=== PATIENT | female | born 1940 | race Two or more races ===

== ENCOUNTER → 2023-11-16 14:43 | Outpatient (REF) | payer MEDICARE, SELFPAY ==
[2023-11-16 15:03] LABS: Urine Albumin Negative (Neg - Trace); Urine Bilirubin Negative (Negative); Urine Character Clear (Clear); Urine Color Yellow; Urine Glucose Negative (Negative); Urine Ketone 1+ (Negative); Urine Leukocyte 2+ (Negative); Urine Nitrite Negative (Negative); Urine Occult Blood Negative (Negative); Urine Specific Gravity 1.015 (<1.030); Urine Urobilinogen Negative (Neg - 1+)
[2023-11-16 15:30] LABS: Urine Squamous Cell 0-2 /LPF (Few)
[2023-11-16 15:32] LABS: Urine Bacteria Few (Negative); Urine Red Blood Cell 0-2 /HPF (0-2)
== END ==
LOC: OLABBH 14:43
PROVIDERS: ATTENDING PHYSICIAN Family Medicine
DX: N39.0 Urinary tract infection, site not specified (principal)
CPT/HCPCS: 81003; 81015; 87086

== ENCOUNTER 2024-03-25 00:15 | Inpatient (IN) | payer MEDICARE, SELFPAY ==
[2024-03-24 19:43] VITALS: BP 139/75
[2024-03-24 21:10] LABS: % Basophils 0.2 % (0-2); % Immature Granulocytes 1.9 % (0-0.5); % Lymphocytes 14.6 % (20.5-51.1); % Neutrophils 68.3 % (42.2-75.2); Absolute Immature Granulocytes 0.1 10^3/uL (0-0.05); Absolute Lymphocytes 0.7 10^3/uL (1.2-3.4); Absolute Monocytes 0.7 10^3/uL (0.1-0.6); Absolute Neutrophils 3.3 10^3/uL (1.4-6.5); Hemoglobin 9.8 g/dL (12.0-16.0); Mean Corp Hgb Conc. 30.6 g/dL (33.0-37.0); Mean Corpuscular Hgb 23.1 pg (27.0-31.0); Mean Corpuscular Volume 75.5 fL (81.0-99.0); Mean Platelet Volume 11.9 fL (7.4-10.4); Nucleated Red Blood Cells % 0 %; Platelet Count 204 10^3/uL (130-400); Red Blood Cell Count 4.24 10^6/uL (4.20-5.40); Red Cell Dist. Width 16.4 % (11.5-14.5); White Blood Cell Count 4.9 10^3/uL (4.8-10.8)
[2024-03-24 21:21] VITALS: BP 155/88
[2024-03-24 21:27] LABS: Urine Albumin Negative (Neg - Trace); Urine Bilirubin Negative (Negative); Urine Character Clear (Clear); Urine Color Straw; Urine Glucose Negative (Negative); Urine Ketone Negative (Negative); Urine Leukocyte Trace (Negative); Urine Nitrite Negative (Negative); Urine Occult Blood Negative (Negative); Urine Urobilinogen Negative (Neg - 1+)
[2024-03-24 21:32] LABS: Urine Squamous Cell 0-2 /LPF (Few)
[2024-03-24 21:33] LABS: Urine Bacteria Few (Negative); Urine Red Blood Cell 0-2 /HPF (0-2)
[2024-03-24 21:43] LABS: ALT (SGPT) 15 U/L (0-35); AST (SGOT) 23 U/L (14-36); Albumin 3.6 g/dl (3.5-5.0); Alkaline Phosphatase 83 U/L (38-126); Blood Urea Nitrogen 18 mg/dl (7-17); Calcium 8.8 mg/dl (8.4-10.2); Carbon Dioxide 27 mmol/L (22-30); Chloride 105 mmol/L (98-107); Glucose 112 mg/dl (70-99); Potassium 4.1 mmol/L (3.5-5.1); Sodium 141 mmol/L (135-145); Total Bilirubin 0.3 mg/dl (0.2-1.3); Total Protein 6.6 g/dl (6.3-8.2); eGFR 44.36
--- NOTE | 2024-03-24 22:00 | ED.GENMED ---
History of Present Illness
General
Chief Complaint: Fall
Source: patient
Exam Limitations: none
Time Seen by Provider: 03/24/24 19:58
Nursing documentation reviewed up to this point in time: agreed with
History of Present Illness
History of Present Illness:
83-year-old female past medical history of hypertension hyperlipidemia dementia sleep apnea presenting to the emergency department after multiple falls over the past few days coming from the memory care unit at [facility]. Complaining of
bilateral knee pain right-sided hand pain also is noted bruising to her face. Denies any shortness of breath chest pain nausea or vomiting. Not on blood thinners.
Review of Systems
Review of Systems
Allergies reviewed?: Yes
All Other Systems: ROS reviewed and negative except as documented in HPI and ROS
Phy Exam
Physical Exam
Physical Exam:
GENERAL: Alert , in no apparent distress
EYE: pupils equal and reactive
NECK: Supple, no significant adenopathy.
ENT: Bruising throughout the face mainly surrounding the orbital region and nasal bridge. No nasal septal hematoma o/p clr, mmm.
CARDIAC: Regular rate and rhythm .
LUNGS: Diminished lung sounds to the right side no acute respiratory distress, no wheezes/rales/rhonchi
ABDOMEN: Soft, without focal tenderness, no r/g, no cvat
NEUROLOGICAL: Alert and oriented, no focal neuro deficits
SKIN: Warm and dry, skin intact.
MUSCULOSKELETAL: Significant bruising and tenderness palpation to the right hand. Mainly to the second carpal, mild tenderness to the anterior knees bilaterally but good range of motion and strength. Otherwise normal range of motion strength of
both upper extremities. well perfused.
PSYCH: Normal and appropriate interaction.
Course
Orders/Labs/Results
Orders:
Orders
03/24/24 19:50
CT Head W/o Iv Contrast Urgent
Comment:
Reason For Exam: fall, head strike, facial bruising
03/24/24 19:51
Hand, Right 3 View [CR Hand - Right Min 3 Views] Urgent
Comment:
Reason For Exam: fall, right hand swelling/bruising
03/24/24 20:03
EKG [Electrocardiogram (*1)] Urgent
Reason for Study: Fatigue / Weakness
Knee, Left 4 or More Views [CR Knee - Left 4 Or More View*] Urgent
Comment:
Reason For Exam: fall knee pain
Knee, Right 4 or More Views [CR Knee- Right 4 Or More View*] Urgent
Comment:
Reason For Exam: fal lknee pain
03/24/24 20:04
EKG- Treatment ONCE
Chest [CR Chest - 2 Views ] Urgent
Comment:
Reason For Exam: sob
03/24/24 20:40
CT Chest With Iv Contrast Urgent
Comment:
Reason For Exam: left lung effusion
03/24/24 21:05
CBC/With Diff [Complete Blood Count/With Diff] Urgent
CMP [Comprehensive Metabolic Panel] Urgent
Urinalysis Reflex To Culture Urgent
Date Specimen was Collected: 03/24/24
Time Specimen was Collected: 20:04
Urine Microscopic Reflex Cult Urgent
Abnormal Lab Results
03/24/24
21:05
Hgb 9.8 L g/dL
(12.0-16.0)
Hct 32.0 L %
(37.0-47.0)
MCV 75.5 L fL
(81.0-99.0)
MCH 23.1 L pg
(27.0-31.0)
MCHC 30.6 L g/dL
(33.0-37.0)
RDW 16.4 H %
(11.5-14.5)
MPV 11.9 H fL
(7.4-10.4)
Abs Immat Gran (auto) 0.1 H 10^3/uL
(0-0.05)
Absolute Lymphs (auto) 0.7 L 10^3/uL
(1.2-3.4)
Absolute Monos (auto) 0.7 H 10^3/uL
(0.1-0.6)
Immature Gran % 1.9 H %
(0-0.5)
Lymphocytes % 14.6 L %
(20.5-51.1)
Monocytes % 15.0 H %
(1.7-9.3)
BUN 18 H mg/dl
(7-17)
Creatinine 1.2 H mg/dL
(0.6-1.0)
Glucose 112 H mg/dl
(70-99)
Leukocyte Esterase Rfl Trace A
(Negative)
Urine Bacteria (Reflex) Few A
(Negative)
03/24/24 21:05
03/24/24 21:05
Vital Signs
Initial and Last Documented VS:
Initial Vital Signs
Temp Pulse Resp BP Pulse Ox
98.3 F 86 16 139/75 90
03/24/24 19:43 03/24/24 19:43 03/24/24 19:43 03/24/24 19:43 03/24/24 19:43
Last Documented Vital Signs
Temp Pulse Resp BP Pulse Ox
98.3 F 76 14 150/97 96
03/24/24 19:43 03/24/24 22:45 03/24/24 22:45 03/24/24 22:05 03/24/24 22:45
MDM/Problems Addressed
MDM/Problems Addressed:
83-year-old female presenting to the problem today after multiple falls from her dementia unit at her nursing facility. Patient mainly concerned of right hand pain denies significant shortness of breath or headache. Is noted to have bruising to
her face head CT without emergent findings patient was found to be hypoxic but denies any shortness of breath or chest pain. Found to have diminished lung sounds to the left side. X-ray showing significant effusion to the left side CT scan then
ordered. Otherwise labs findings. CT scan showing large pleural effusion no broken ribs or signs of significant trauma to the chest. Otherwise labs unremarkable. Concern the patient hypoxemic plan to admit for IR drainage and further assessment
of patient's pleural effusion. Patient also was found of a fracture to her right hand to the second metacarpal. Patient was splinted. Stable throughout ER stay
*Critical Care Note
Total Time (30-74mins, 75-104mins- exclusive of procedures): Not Applicable
ED Attending Note
-
Portions of this chart may have been created with voice recognition software.� Occasional wrong word or��sound alike� substitutions may have occurred due to the inherent limitations of voice recognition software.
Discharge Plan
Departure
Patient Disposition: Admit
Date of Disposition: 03/24/24
Time of Disposition: 23:23
Admit to: Telemetry
Admit to doctor: Sena
Presentation/result/management discussed w/ accepting MD/DO: Hospitalist
Patient with high blood pressure during this ER visit?: No
Condition: Good
Covid-19: Not Applicable
Discharge Problem:
Pleural effusion on left, Hand fracture, right, Hypoxemia
Prescriptions:
No Action
fluticasone propion-salmeterol [Wixela Inhub] 250-50 mcg/dose Blister With Device
1 inh INHALATION BID
acetaminophen 325 mg Tablet
650 mg PO Q4H PRN (Reason: mild pain/fever)
trazodone 50 mg Tablet
50 mg PO HS
donepezil 10 mg Tablet
10 mg PO HS
lovastatin 40 mg Tablet
40 mg PO QPM
sertraline 100 mg Tablet
100 mg PO DAILY
fexofenadine 180 mg Tablet
180 mg PO DAILY
aspirin 81 mg Tablet,Delayed Release (Dr/Ec)
81 mg PO DAILY
triamcinolone acetonide 0.1 % Cream
1 applic TOPICAL BID
Rx Instructions:
Apply to affect area until healed
omeprazole 20 mg Capsule,Delayed Release(Dr/Ec)
20 mg PO DAILY
simethicone 125 mg Tablet,Chewable
250 mg PO BID
montelukast 10 mg Tablet
10 mg PO DAILY
albuterol sulfate 90 mcg/actuation Hfa Aerosol Inhaler
2 puff INHALATION HS
memantine 10 mg Tablet
10 mg PO BID
mirtazapine 7.5 mg Tablet
7.5 mg PO HS
albuterol sulfate 90 mcg/actuation Hfa Aerosol Inhaler
2 puff INHALATION Q4HPRN PRN (Reason: cough/shortness of breath)
naproxen 500 mg Tablet
500 mg PO BID PRN (Reason: pain)
Referrals:
Best Gillette MD [Family Provider] -
Interventions
Interventions:
*Risk Screen - Suicide Last Done: 03/24/24 19:43
*General Assessment Last Done: 03/24/24 19:43
*Neglect/Abuse Screening Last Done: 03/24/24 19:43
ED-Musculoskeletal Assessment Last Done: 03/24/24 20:26
ED- Neurological Assessment Last Done: 03/24/24 20:23
ED-Skin Assessment Last Done: 03/24/24 20:23
Discharge Date and Time
Print Language: IVORIAN
[2024-03-24 22:05] VITALS: BP 150/97
--- NOTE | 2024-03-24 23:31 | HPS.HSE ---
Family Physician
-
Family Physician: Best Gillette
Chief Complaint
-
Frequent Falls
History of Present Illness
Patient is an 83 y/o female past medical history of dementia who presents with frequent falls. Patient resides at a local memory care unit, and due to her dementia she is unable to provide any history. Apparently patient has been having an
increasing number falls. Upon arrival to the emergency department she was noted to have bruising of her face, and she was also found to be hypoxic. Work-up in the emergency department reveal large left pleural effusion and right hand fracture.
Hospitalist group was asked to evaluate the patient for admission to the hospital.
Medical History
Past Medical History
Past Medical History: Reports Other
Additional Past Medical History:
Asthma
Dementia
Depression
Hyperlipidemia
Chronic Anemia
Past Surgical History: Reports Other (Unknown)
Social History
Tobacco: Non-smoker
Living: Other ([facility])
Family History
Family History: Unable to Obtain
Allergies / Home Medications
Allergies reflects when Allergies were last updated in [employer].
Home Medications with original date entered in [employer]
Allergy/Medication List:
Allergies
Allergy/AdvReac Type Severity Reaction Status Date / Time
No Known Allergies Allergy Unverified 03/24/24 19:42
Home Medications
acetaminophen 325 mg tablet 650 mg PO Q4H PRN mild pain/fever 03/24/24
albuterol sulfate 90 mcg/actuation aerosol inhaler 2 puff inhalation HS 03/24/24
albuterol sulfate 90 mcg/actuation aerosol inhaler 2 puff inhalation Q4HPRN PRN cough/shortness of breath 03/24/24
aspirin 81 mg tablet,delayed release 81 mg PO DAILY 03/24/24
donepezil 10 mg tablet 10 mg PO HS 03/24/24
fexofenadine 180 mg tablet 180 mg PO DAILY 03/24/24
fluticasone 250 mcg-salmeterol 50 mcg/dose blistr powdr for inhalation (Wixela Inhub) 1 inh inhalation BID 03/24/24
lovastatin 40 mg tablet 40 mg PO QPM 03/24/24
memantine 10 mg tablet 10 mg PO BID 03/24/24
mirtazapine 7.5 mg tablet 7.5 mg PO HS 03/24/24
montelukast 10 mg tablet 10 mg PO DAILY 03/24/24
naproxen 500 mg tablet 500 mg PO BID PRN pain 03/24/24
omeprazole 20 mg capsule,delayed release 20 mg PO DAILY 03/24/24
sertraline 100 mg tablet 100 mg PO DAILY 03/24/24
simethicone 125 mg chewable tablet 250 mg PO BID 03/24/24
trazodone 50 mg tablet 50 mg PO HS 03/24/24
triamcinolone acetonide 0.1 % topical cream 1 applic topical BID 03/24/24
Review of Systems
-
Unable to obtain full review of systems at this time due to: Dementia
Physical Exam
Vital Signs
Vital Signs
Temp Pulse Resp BP Pulse Ox
98.3 F 76 14 150/97 96
03/24/24 19:43 03/24/24 22:45 03/24/24 22:45 03/24/24 22:05 03/24/24 22:45
Physical Exam
General: Comfortable and Conversant
HEENT: Oxygen (Nasal Cannula) and Other (Bruising noted to lower forehead and around bilateral eyes)
Respiratory: Clear (Right), Non Labored Respirations and Other (Absent breath sounds on the left)
Cardiac: S1/S2 and Regular Rhythm
GI: Soft and Non Tender
Musculoskeletal: No Clubbing, No Cyanosis and No Edema
Skin: Warm and Dry
Neuro: Awake, Alert, Oriented (Self) and Nonfocal/grossly intact
Psych: Calm
Laboratory Results
-
03/24/24 21:05
03/24/24 21:05
Laboratory Results
Total Bilirubin 0.3 mg/dl (0.2-1.3) 03/24/24 21:05
AST 23 U/L (14-36) 03/24/24 21:05
ALT 15 U/L (0-35) 03/24/24 21:05
Alkaline Phosphatase 83 U/L (38-126) 03/24/24 21:05
Right Hand X-Ray:
Comminuted, displaced and mildly impacted fracture of the distal shaft of the second metacarpal.
Chest X-Ray:
Near-complete opacification of the left hemithorax with large left pleural effusion and associated atelectasis. There is additional small right pleural effusion. In the setting of trauma a hemothorax is also possible. No pneumothorax.
Chest CT:
There is a large left pleural effusion with complete collapse of the left lower lobe and partial collapse of the left upper lobe. There is associated slight rightward displacement of the trachea. There is additional small right pleural effusion with
right basilar atelectasis.
Data Reviewed
-
Diagnostic Radiology: Report Reviewed by me
CT Scan: Report Reviewed by me
Lab Data: Labs Reviewed by me
Impression/Plan
-
Acute Hypoxic Respiratory Insufficiency secondary to Large Left Pleural Effusion
-Consult IR for thoracentesis
-Continue supplemental oxygen
Right Hand Fracture
-Splint placed in ED
-Will need follow-up with ortho as outpatient
Frequent Falls
-Consult PT/OT
-Check orthostatic VS
-Check Facial Bone CT given significant facial bruising
-Monitor on Telemetry
Anemia, paperwork from facility indicates chronic anemia but baseline Hgb is unknown
-Check iron studies
-Trend Hgb
Dementia
-Continue Aricept and Namenda
-Monitor for mood/behavior changes during hospitalization
Anxiety/Depression
-Continue Zoloft, Remeron and Trazodone
Asthma, no acute exacerbation
-Continue Wixela and albuterol
-Continue montelukast
Hyperlipidemia
-Continue lovastatin
DVT proph: SCDs
Code Status: Full Code
--- NOTE | 2024-03-24 23:58 | W.PN.UPDATE ---
Update Note
Progress Note Update
Patient seen in conjunction with WREATH MAKER, I agree with the findings on history and physical as well as the assessment and plan unless stated otherwise.
Patient is a 83-year-old who lives at a dementia unit and [facility] for recurrent falls and difficulty ambulating recently. She had apparent injuries to the bridge of her nose and some facial ecchymosis. Ultimately found
to have a right hand finger fracture status post closed reduction and splinting. Patient unable to provide much history. Although she is alert and oriented to person and place she denies any acute symptoms. She unable to tell the instances of her
fall. She denies having any chest pain, dyspnea on exertion, shortness of breath, cough fevers or chills. She reports that she has asthma but otherwise denies any significant past medical history. Family was unhappy with unavailable to provide
additional corroborating information.
When she arrived in the ED the patient was hypoxic to 85% on room air but was not in any respiratory distress. She had blood pressure of 150/90 and pulse of 76. She was afebrile. White count was 4.9 hemoglobin 9.8 and platelet count was 204.
Chemistries were unremarkable with a creatinine of 1.2 (unchanged). UA was unremarkable.
During extensive ED workup for a false the patient had a chest x-ray which showed right large left-sided pleural effusion/hemothorax. Patient then had a CT of the chest which showed large left-sided pleural effusion of uncertain etiology. No blunt
trauma to the chest, no fractures and no internal injuries on the chest CT scan. Oxygen saturation was 97% on 2 L nasal cannula at this time.
Patient's with significant hypoxia likely secondary to the large left-sided pleural effusion and atelectasis. There was no pneumothorax. On 2 L she satting 97 and breathing comfortably without any respiratory distress. She is hemodynamically
stable. She had no signs of acute infection. She has no signs of heart failure. There is no known cirrhosis and LFTs/bilirubin are within normal limits.
Assessment and plan
1. Pleural effusion - Incidental finding of hypoxia and bilateral pleural effusion but mostly large Left sided effusion. No known history for explanation so differential is quite broad. She does not appears to be in acute heart failure no show any
other signs of volume overload. LFTs normal and renal function shows CKD. Well appearing and stable on 2 L NC
- admit to telemetry
- IR consult for diagnostic and therapeutic tap, if transudative can carry on further hemodynamic w/u otherwise exucdative w/u
- contact POA in am for consents
- supplemental oxygen for now
2. Frequent falls and injury - Denies lightheadedness and dizziness. No acute intracranial injury. Significant facial ecchymoses.
- holding aspirin
- right hand splint, ortho consult in am if needed
- ct facial bones
- telemetry
- orthostatic vs
- PT evaluation
3. Anemia - microcytic anemia with some decline from prior
- iron studies per bell spinner sousaphones note
4.Asthma/dementia
-continue home meds
DVT PPX - SCD
Full Code for now
[2024-03-25] VITALS (10 sets, daily range): BP systolic 126–159; BP diastolic 71–98; PULSE 81–87; O2SAT 87; BMI 22.4
[2024-03-25 00:18] LABS: Iron 32 ug/dl (37-170)
--- NOTE | 2024-03-25 00:19 | EDRN ---
Patient up to bedside commode and back in bed resting, took patient over to CT
[2024-03-25 00:28] LABS: Percent Saturation 9 % (20-50); Total Iron Binding Capacity 343 ug/dl (265-497)
[2024-03-25 00:54] LABS: Ferritin 18.9 ng/ml (11.1-264.0)
[2024-03-25 01:25] LABS: Folate 4.5 ng/ml (2.76-20)
[2024-03-25 02:24] LABS: Vitamin B12 438 pg/ml (239-931)
[2024-03-25] MEDS: NAMENDA 10 MG PO ×2 (08:00→19:54)
[2024-03-25] MEDS: SINGULAIR 10 MG PO (08:00)
[2024-03-25] MEDS: PROTONIX 40 MG PO (08:00)
[2024-03-25] MEDS: ZOLOFT 100 MG PO (08:00)
[2024-03-25] MEDS: ADVAIR HFA 115/21 MCG INHALER 2 PUFF INH ×2 (08:03→20:32)
--- NOTE | 2024-03-25 08:09 | W.PN.HOSP.TC ---
Today's Communication/Plan
-
Plan for thoracentesis. Continue oxygen supplementation. PT OT eval
Assessment / Plan
Assessment / Plan
Physical exam:
General: Well Developed, Well Nourished and No Apparent Distress
HEENT: Normocephalic, Atraumatic and Moist Mucous Membranes
Respiratory: Clear to Auscultation; Negative Wheezes, Rales or Rhonchi
Cardiac: Regular Rhythm and S1/S2
GI: Soft, Nontender and Nondistended
Musculoskeletal: No Clubbing, No Cyanosis and No Edema
Neuro: Awake, Alert and Oriented
Psych: Calm
A/P:
Acute Hypoxic Respiratory Insufficiency secondary to Large Left Pleural Effusion
-Continue supplemental oxygen
- IR consult for diagnostic and therapeutic tap, if transudative can carry on further hemodynamic w/u otherwise exudative w/u
- supplemental oxygen for now
Right Hand Fracture
-Splint placed in ED
-Will need follow-up with ortho as outpatient
Frequent Falls
-Consult PT/OT
-Check orthostatic VS
-Check Facial Bone CT given significant facial bruising
-Monitor on Telemetry
Anemia, paperwork from facility indicates chronic anemia but baseline Hgb is unknown
-Check iron studies
-Trend Hgb
Dementia
-Continue Aricept and Namenda
-Monitor for mood/behavior changes during hospitalization
Anxiety/Depression
-Continue Zoloft, Remeron and Trazodone
Asthma, no acute exacerbation
-Continue Wixela and albuterol
-Continue montelukast
Hyperlipidemia
-Continue lovastatin
DVT proph: SCDs
Code Status: Full Code
Anticipated Discharge: 24 - 48 hours
Subjective/Interval History
-
Date of Service: March 25, 2024
Patient alert but pleasantly disoriented. On 2 L of oxygen. Denies chest pain or worsening shortness of breath. Afebrile
Objective Data
-
Labs:
Laboratory Results
03/24/24 03/25/24
21:05 06:37
WBC 4.9 Pending
Hgb 9.8 L Pending
Hct 32.0 L Pending
Plt Count 204 Pending
Sodium 141 Pending
Potassium 4.1 Pending
Chloride 105 Pending
Carbon Dioxide 27 Pending
BUN 18 H Pending
Creatinine 1.2 H Pending
Glucose 112 H Pending
Calcium 8.8 Pending
Total Bilirubin 0.3
AST 23
ALT 15
Alkaline Phosphatase 83
Vital Signs:
Vital Signs
Temp Pulse Resp BP Pulse Ox
98.2 F 78 16 140/83 98
03/25/24 02:55 03/25/24 08:03 03/25/24 08:03 03/25/24 02:55 03/25/24 08:03
[2024-03-25 08:26] LABS: Hematocrit 30.4 % (37.0-47.0); Hemoglobin 9.3 g/dL (12.0-16.0); Mean Corp Hgb Conc. 30.6 g/dL (33.0-37.0); Mean Corpuscular Hgb 23.4 pg (27.0-31.0); Mean Corpuscular Volume 76.4 fL (81.0-99.0); Mean Platelet Volume 12.4 fL (7.4-10.4); Platelet Count 180 10^3/uL (130-400); Red Blood Cell Count 3.98 10^6/uL (4.20-5.40); Red Cell Dist. Width 16.4 % (11.5-14.5); White Blood Cell Count 3.8 10^3/uL (4.8-10.8)
[2024-03-25 09:04] LABS: Blood Urea Nitrogen 16 mg/dl (7-17); Calcium 8.8 mg/dl (8.4-10.2); Carbon Dioxide 27 mmol/L (22-30); Chloride 105 mmol/L (98-107); Estimated Creatinine Clearance 32 ml/min; Glucose 92 mg/dl (70-99); LDH 760 U/L (120-246); Potassium 4.2 mmol/L (3.5-5.1); Sodium 141 mmol/L (135-145); Total Protein 6.3 g/dl (6.3-8.2); eGFR 49.24
[2024-03-25] MEDS: LIPITOR 10 MG PO (17:59)
[2024-03-25] MEDS: VENTOLIN NEBULES 2.5 MG INH (20:36)
[2024-03-25] MEDS: REMERON 7.5 MG PO (23:00)
[2024-03-25] MEDS: DESYREL 50 MG PO (23:01)
[2024-03-25] MEDS: ARICEPT 10 MG PO (23:01)
[2024-03-26] VITALS (10 sets, daily range): BP systolic 78–149; BP diastolic 62–84; PULSE 79–88; BMI 22.1
[2024-03-26] MEDS: ADVAIR HFA 115/21 MCG INHALER 2 PUFF INH ×2 (07:49→21:55)
[2024-03-26 09:10] LABS: Hematocrit 32.4 % (37.0-47.0); Hemoglobin 9.8 g/dL (12.0-16.0); Mean Corp Hgb Conc. 30.2 g/dL (33.0-37.0); Mean Corpuscular Hgb 23.1 pg (27.0-31.0); Mean Corpuscular Volume 76.4 fL (81.0-99.0); Mean Platelet Volume 12.2 fL (7.4-10.4); Platelet Count 182 10^3/uL (130-400); Red Blood Cell Count 4.24 10^6/uL (4.20-5.40); Red Cell Dist. Width 16.3 % (11.5-14.5)
[2024-03-26] MEDS: ZOLOFT 100 MG PO (09:13)
[2024-03-26] MEDS: NAMENDA 10 MG PO ×2 (09:13→22:41)
[2024-03-26] MEDS: PROTONIX 40 MG PO (09:13)
[2024-03-26] MEDS: SINGULAIR 10 MG PO (09:13)
[2024-03-26] MEDS: TYLENOL 650 MG PO ×2 (09:19→16:56)
[2024-03-26 10:00] LABS: Blood Urea Nitrogen 19 mg/dl (7-17); Calcium 8.9 mg/dl (8.4-10.2); Carbon Dioxide 26 mmol/L (22-30); Chloride 103 mmol/L (98-107); Estimated Creatinine Clearance 32 ml/min; Glucose 100 mg/dl (70-99); Potassium 4.3 mmol/L (3.5-5.1); Sodium 140 mmol/L (135-145); eGFR 49.24
[2024-03-26 11:24] LABS: Body Fluid pH 7.44
[2024-03-26 11:40] LABS: Body Fluid Amylase 50 U/L; Body Fluid Glucose 106 mg/dl; Body Fluid LDH 168 U/L; Body Fluid Protein 3.8 g/dl; Body Fluid Triglycerides < 30 mg/dl
[2024-03-26 13:01] LABS: Body Fluid Mononuclear 90.8 %; Body Fluid Polymorphonuclear 9.2 %; Body Fluid WBC 163 /CUMM
[2024-03-26 13:07] LABS: Body Fluid Second Tech CS
--- NOTE | 2024-03-26 16:07 | W.PN.HOSP.TC ---
Today's Communication/Plan
-
Consult Pulm
Follow pleural fluid data
PT/OT
Assessment / Plan
Assessment / Plan
Acute Hypoxic Respiratory Insufficiency secondary to Large Left Pleural Effusion
-Continue supplemental oxygen; wean as able
-s/p diagnostic and therapeutic tap -follow data
- Post tap chest x-ray shows possible trapped lung. Consult pulmonary.
- supplemental oxygen for now
Right Hand Fracture
-Splint placed in ED
-Will need follow-up with ortho as outpatient
Frequent Falls
-cw PT/OT
-Check orthostatic VS
-Facial Bone CT no fracture
-Monitor on Telemetry
Anemia, paperwork from facility indicates chronic anemia but baseline Hgb is unknown
-Check iron studies
-Trend Hgb
Dementia
-Continue Aricept and Namenda
-Monitor for mood/behavior changes during hospitalization
Anxiety/Depression
-Continue Zoloft, Remeron and Trazodone
Asthma, no acute exacerbation
-Continue Wixela and albuterol
-Continue montelukast
Hyperlipidemia
-Continue lovastatin
DVT proph: SCDs
Code Status: Full Code
Total time spent on today's encounter was 52 minutes which included time spent in counseling the patient regarding diagnosis and treatment plan as listed above, goals of care, and symptom management. Case was discussed with nursing staff,
specialists . All labs and imaging personally reviewed by me. Remainder the time spent in detailed review of previous records, lab data, imaging, and other medical provider documentation.
Anticipated Discharge: > 48 hours
Subjective/Interval History
-
Date of Service: March 26, [address] and person.
She thinks she may have asthma but otherwise no other lung problems. She did not have left-sided chest pain or shortness of breath prior to coming to the hospital.
She had thoracentesis on left side this morning.
Complains of right knee pain.
Objective Data
-
Labs:
Laboratory Results
03/26/24
08:50
WBC 4.0 L
Hgb 9.8 L
Hct 32.4 L
Plt Count 182
Sodium 140
Potassium 4.3
Chloride 103
Carbon Dioxide 26
BUN 19 H
Creatinine 1.1 H
Glucose 100 H
Calcium 8.9
Vital Signs:
Vital Signs
Temp Pulse Resp BP Pulse Ox
98.5 F 84 16 127/77 97
03/26/24 15:36 03/26/24 15:36 03/26/24 15:36 03/26/24 15:36 03/26/24 15:36
I&O
03/25/24 03/26/24 03/27/24
06:59 06:59 06:59
Intake Total 840 / 840
Balance 840 / 840
Review of Systems
-
Constitutional: Denies Fever
Cardiac: Denies Chest Pain
Abdomen/GI: Denies Abdominal Pain, Nausea or Vomiting
Neuro: Denies Dizzy
Physical Exam
-
General: No Apparent Distress
HEENT: Moist Mucous Membranes
Respiratory: Non Labored Respirations; Negative Accessory Resp Muscle Use
Cardiac: Regular Rhythm and S1/S2
Musculoskeletal: Other (Rt knee PROM)
Neuro: AO x 3
Psych: Calm
Data Reviewed
-
Labs: Labs Reviewed by me
--- NOTE | 2024-03-26 16:46 | CM ---
brand activation manager reviewed patient's chart and met with patient and spoke with patient's emergency contact Morgan by phone, patient resides at [facility], patient requires assist with adl's and uses a cane with ambulation,
recommendation is for skilled placement options reviewed with patient's emergency contact and he has selected [facility], referral sent to [facility].
PCP: Dr. Gillette
Plan; Skilled placement at [facility], referral sent.
[2024-03-26] MEDS: LIPITOR 10 MG PO (16:56)
--- NOTE | 2024-03-26 19:17 | CON.PUL ---
Consultation
Consultation Request
Date/Time Consultation Requested: 03/26/2024 144
Date/Time Consultation Performed: 03/26/2024 - 152
Requesting Provider: Dr. Rhodes
Performing Provider: Dr. Osman
Reason for Consultation: Concern for trapped lung
Medical History
-
Chief Complaint: Multiple falls
History of Present Illness:
83-year-old female non-smoker with a past medical history of dementia who presents with multiple falls over the last few days. She is currently living at [facility]. Patient initially endorsed bilateral knee pain + right hand
pain. Also has bruising to the face. Patient not on blood thinners. History obtained from chart as patient is a poor historian. Initial vitals in the ER showed she was afebrile to 98.3 �F, pulse rate 86, breathing at 16 breaths/min, BP 139/75
and saturating 90% on room air. Initial labs significant for Hb 9.8, iron saturation level 9, and urinalysis with trace leukocyte esterase. Smart imaging was done showing a 0.6 cm right frontal benign meningioma, a right hand comminuted, displaced
and mildly impacted fracture of the distal shaft of the second metacarpal, and CXR showed near complete opacification of the left hemithorax with large pleural effusion and associated atelectasis. Also a small right pleural effusion. Large
left-sided pleural effusion was confirmed with CT chest with slight rightward deviation of the trachea. CT facial bones showed no evidence of acute facial fracture. Thoracentesis was performed with 1650 cc of clear fermin-colored fluid removed.
Post thoracentesis CXR showed moderate left-sided pneumothorax likely representing trapped lung physiology. Repeat CXR shows persistent small left-sided pneumothorax without significant change. Pulmonary service now consulted for additional
management/recommendations.
When I saw the patient she was resting in bed in no acute distress. Currently on 2 L/min nasal cannula and breathing comfortably. SpO2 97%. She has no respiratory complaints. She is however a poor historian w/ dementia.
PMHx: Dementia, depression, hyperlipidemia, chronic anemia, history of asthma
PSHx: Unknown
Past Medical History
Past Medical History: Other (Above as per HPI)
Past Surgical History: Other (Above as per HPI)
Social History
Tobacco: Non-smoker
Alcohol: None
Drug: None
Living: Other (Memory care unit)
Family History
Family History: Unable to Obtain
Allergies / Home Medications
Allergies
Allergy/AdvReac Type Severity Reaction Status Date / Time
No Known Allergies Allergy Unverified 03/24/24 19:42
Home Medications
�Medication �Instructions �Recorded �Confirmed �Last Taken �Type
acetaminophen 325 mg tablet 650 mg PO Q4H PRN mild pain/fever 03/24/24 03/24/24 Unknown History
albuterol sulfate 90 mcg/actuation 2 puff inhalation HS 03/24/24 03/24/24 Unknown History
aerosol inhaler
albuterol sulfate 90 mcg/actuation 2 puff inhalation Q4HPRN PRN 03/24/24 03/24/24 Unknown History
aerosol inhaler cough/shortness of breath
aspirin 81 mg tablet,delayed 81 mg PO DAILY 03/24/24 03/24/24 Unknown History
release
donepezil 10 mg tablet 10 mg PO HS 03/24/24 03/24/24 Unknown History
fexofenadine 180 mg tablet 180 mg PO DAILY 03/24/24 03/24/24 Unknown History
fluticasone 250 mcg-salmeterol 50 1 inh inhalation BID 03/24/24 03/24/24 Unknown History
mcg/dose blistr powdr for
inhalation (Wixela Inhub)
lovastatin 40 mg tablet 40 mg PO QPM 03/24/24 03/24/24 Unknown History
memantine 10 mg tablet 10 mg PO BID 03/24/24 03/24/24 Unknown History
mirtazapine 7.5 mg tablet 7.5 mg PO HS 03/24/24 03/24/24 Unknown History
montelukast 10 mg tablet 10 mg PO DAILY 03/24/24 03/24/24 Unknown History
naproxen 500 mg tablet 500 mg PO BID PRN pain 03/24/24 03/24/24 Unknown History
omeprazole 20 mg capsule,delayed 20 mg PO DAILY 03/24/24 03/24/24 Unknown History
release
sertraline 100 mg tablet 100 mg PO DAILY 03/24/24 03/24/24 Unknown History
simethicone 125 mg chewable tablet 250 mg PO BID 03/24/24 03/24/24 Unknown History
trazodone 50 mg tablet 50 mg PO HS 03/24/24 03/24/24 Unknown History
triamcinolone acetonide 0.1 % 1 applic topical BID 03/24/24 03/24/24 Unknown History
topical cream
Review of Systems
-
Unable to Obtain full review of systems at this time due to: Dementia
Vitals / Labs / Diagnostic Testing
Vital Signs
Temp Pulse Resp BP Pulse Ox
98.5 F 84 16 127/77 97
03/26/24 15:36 03/26/24 15:36 03/26/24 15:36 03/26/24 15:36 03/26/24 15:36
Lab Data
03/26/24 08:50
03/26/24 08:50
Microbiology
03/26/24 10:49 Pleural Fluid Gram Stain - Preliminary
Diagnostic Testing:
Physical Exam
-
HEENT: Normocephalic and Anicteric
Cardiovascular: S1/S2 and Peripheral Edema (negative)
Respiratory: Wheeze (negative), Rales (bibasilar), Rhonchi (negative), Non-Labored Respirations and Other (Diminished BS at bases (L>R))
GI: Soft, Non Distended, Non Tender and Normal Bowel Sounds
Neurology: Awake and Alert
Skin: Warm and Dry
General: Respiratory Distress (negative), Comfortable, Chills (negative) and Sweats (negative)
Assessment
-
Assessment: 83-year-old female non-smoker with a past medical history of dementia who presents with multiple falls over the last few days. She is currently living at [facility]. Patient initially endorsed bilateral knee pain
+ right hand pain. Also has bruising to the face. Patient not on blood thinners. History obtained from chart as patient is a poor historian. Initial vitals in the ER showed she was afebrile to 98.3 �F, pulse rate 86, breathing at 16 breaths/min,
BP 139/75 and saturating 90% on room air. Initial labs significant for Hb 9.8, iron saturation level 9, and urinalysis with trace leukocyte esterase. Smart imaging was done showing a 0.6 cm right frontal benign meningioma, a right hand comminuted,
displaced and mildly impacted fracture of the distal shaft of the second metacarpal, and CXR showed near complete opacification of the left hemithorax with large pleural effusion and associated atelectasis. Also a small right pleural effusion.
Large left-sided pleural effusion was confirmed with CT chest with slight rightward deviation of the trachea. CT facial bones showed no evidence of acute facial fracture. Thoracentesis was performed with 1650 cc of clear fermin-colored fluid
removed. Post thoracentesis CXR showed moderate left-sided pneumothorax likely representing trapped lung physiology. Repeat CXR shows persistent small left-sided pneumothorax without significant change. Pulmonary service now consulted for
additional management/recommendations.
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
Impression:
#Large left-sided pleural effusion s/p thoracentesis with resultant pneumothorax suspected to be ex vacuo from chronic pleural effusions
#Acute respiratory failure with hypoxia on supplemental oxygen
#Recent fall with right second metacarpal comminuted, displaced and mildly impacted fracture
#Leukopenia
#Anemia
#CKD III
#Abnormal urinalysis with trace leukocyte esterase
#Hx of asthma
#LBBB (seen on EKG from 03/24/2024 - no prior to confirm chronicity)
#Dementia
Plan:
- Repeat CXR from today (03/26/2024) already shows reaccumulation of left-sided pleural fluid
- She likely has chronic pleural effusions - no prior imaging available to confirm this
- Pneumothorax is likely ex-vacuo from chronic pleural effusions suspect to be from heart failure
- Check echo
- Would consider starting diuresis and aim for net negative fluid balance of 500cc-1L per 24 hrs; consult cardiology; trend I/O and daily weight
- Continue Advair 115mcg with albuterol HS (home meds)
- if pt has difficulty with inspiratory technique then would change inhaler to aformoterol, budesonide + yupelri vs atrovent
- Maintain SpO2 >90-94% with supplemental O2 and wean as tolerated
- Check ambulatory pulse oximetry prior to discharge
- Incentive spirometer encouraged (as tolerated given Hx of dementia)
- Replete electrolytes with K>4, Mg>2
- Maintain euglycemia with goal BG >100 and <180
- prn nebulized bronchodilators - not currently bronchospastic
- DVT ppx
Pulmonary service will continue to follow along.
Data:
CXR 03/26/2024:
1. Small left pneumothorax, which may be related to trapped lung, without significant change compared to prior study.
2. Left basilar pneumothorax is less visible, likely related to reaccumulation of fluid.
CT Chest with IV contrast 03/24/2024:
1. There is a large left pleural effusion with complete collapse of the left lower lobe and partial collapse of the left upper lobe. There is associated slight rightward displacement of the trachea. There is additional small right pleural effusion
with right basilar atelectasis.
2. Mild four-chamber cardiomegaly.
3. Multiple bilateral thyroid nodules measuring up to 1.6 cm on the left. Recommend nonemergent ultrasound for further evaluation.
Total time spent today was 58 minutes for this encounter. Time includes reviewing laboratory test/imaging results, reviewing pertinent medical records, obtaining and reviewing medical history, performing an appropriate exam, ordering medications,
tests and procedures. Time also includes documentation of this encounter, coordinating patient care and communicating with other healthcare professionals. Total time does not include separately billed tests performed on this date of service.
[2024-03-26] MEDS: VENTOLIN NEBULES 2.5 MG INH (21:55)
[2024-03-26] MEDS: DESYREL 50 MG PO (22:42)
[2024-03-26] MEDS: REMERON 7.5 MG PO (22:42)
[2024-03-26] MEDS: ARICEPT 10 MG PO (22:42)
[2024-03-27 03:52] VITALS: BP 146/75
[2024-03-27 05:24] VITALS: BMI 22.1
[2024-03-27 07:00] VITALS: BP 155/87
[2024-03-27] MEDS: ADVAIR HFA 115/21 MCG INHALER 2 PUFF INH ×2 (08:21→19:46)
[2024-03-27] MEDS: PROTONIX 40 MG PO (08:37)
[2024-03-27] MEDS: SINGULAIR 10 MG PO (08:37)
[2024-03-27] MEDS: NAMENDA 10 MG PO ×2 (08:37→20:17)
[2024-03-27] MEDS: ZOLOFT 100 MG PO (08:37)
[2024-03-27] MEDS: TYLENOL 650 MG PO (08:41)
--- NOTE | 2024-03-27 08:50 | CARDSERVLU ---
Echocardiogram with Lumason completed after protocol screening completed. Allergies verified.
Patent IV site: __L FA___
IV site flushed with 0.9% NaCl pre and post administration.
Diluted bolus method utilized to enhance visualization of ventricular padilla.
Total volume given: __2.5__ mL
Patient tolerated all procedures well without complications.
--- NOTE | 2024-03-27 09:19 | W.PN.PUL3 ---
Today's Communication / Plan
-
IV diuresis as per cardiology
GDMT
Advair
Stop scheduled nebulized albuterol
Continue prn DuoNebs
Conservative management for valvular heart disease
PT/OT; fall precautions
Pulmonary to continue to briefly follow along
Assessment
-
Assessment: 83-year-old female non-smoker with a past medical history of dementia who presents with multiple falls over the last few days. She is currently living at [facility]. Patient initially endorsed bilateral knee pain
+ right hand pain. Also has bruising to the face. Patient not on blood thinners. History obtained from chart as patient is a poor historian. Initial vitals in the ER showed she was afebrile to 98.3 �F, pulse rate 86, breathing at 16 breaths/min,
BP 139/75 and saturating 90% on room air. Initial labs significant for Hb 9.8, iron saturation level 9, and urinalysis with trace leukocyte esterase. Smart imaging was done showing a 0.6 cm right frontal benign meningioma, a right hand comminuted,
displaced and mildly impacted fracture of the distal shaft of the second metacarpal, and CXR showed near complete opacification of the left hemithorax with large pleural effusion and associated atelectasis. Also a small right pleural effusion.
Large left-sided pleural effusion was confirmed with CT chest with slight rightward deviation of the trachea. CT facial bones showed no evidence of acute facial fracture. Thoracentesis was performed with 1650 cc of clear fermin-colored fluid
removed. Post thoracentesis CXR showed moderate left-sided pneumothorax likely representing trapped lung physiology. Repeat CXR shows persistent small left-sided pneumothorax without significant change. Pulmonary service now consulted for
additional management/recommendations.
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
Impression:
#Large left-sided pleural effusion s/p thoracentesis with resultant pneumothorax suspected to be ex vacuo from chronic pleural effusions
#Acute HFrEF in setting of valvular heart disease (moderate-severe and mild-moderate MR)
#Acute respiratory failure with hypoxia on supplemental oxygen
#Recent fall with right second metacarpal comminuted, displaced and mildly impacted fracture
#Leukopenia
#Anemia
#CKD III
#Abnormal urinalysis with trace leukocyte esterase
#Hx of asthma
#LBBB (seen on EKG from 03/24/2024 - no prior to confirm chronicity)
#Dementia
Plan:
- Repeat CXR from 03/26/2024 already shows reaccumulation of left-sided pleural fluid
- She likely has chronic pleural effusions - no prior imaging available to confirm this
- Pneumothorax is likely ex-vacuo from chronic pleural effusions from heart failure
- Obtain any prior chest imaging to assess for chronicity of pleural effusions
- Echo from 03/27/2024 shows reduced LVEF at 35-40% with no obvious WMA appreciated; concern for NICM; also moderate-severe , mild-moderate MR and normal RV size and function.
- Cardiology consulted - recs appreciated
- Would recommend starting IV diuresis, and follow up UOP; given her moderate-severe , she is pre-load dependent so careful not to cause volume depletion. Aim for net negative fluid balance of 500cc-1L per 24 hrs; trend I/O and daily weight
- Defer GDMT to cardiology
- Continue Advair 115mcg with albuterol HS (home meds)
- if pt has difficulty with inspiratory technique then would change inhaler to aformoterol, budesonide + yupelri vs atrovent
- Maintain SpO2 >90-94% with supplemental O2 and wean as tolerated
- Check ambulatory pulse oximetry prior to discharge
- PT/OT; fall precautions
- Incentive spirometer encouraged (as tolerated given Hx of dementia)
- Replete electrolytes with K>4, Mg>2
- Maintain euglycemia with goal BG >100 and <180
- prn nebulized bronchodilators - not currently bronchospastic
- DVT ppx: start HSQ
Pulmonary service will continue to briefly follow along.
Patient was seen and evaluated on 03/27/2024
Data:
CXR 03/26/2024:
1. Small left pneumothorax, which may be related to trapped lung, without significant change compared to prior study.
2. Left basilar pneumothorax is less visible, likely related to reaccumulation of fluid.
CT Chest with IV contrast 03/24/2024:
1. There is a large left pleural effusion with complete collapse of the left lower lobe and partial collapse of the left upper lobe. There is associated slight rightward displacement of the trachea. There is additional small right pleural effusion
with right basilar atelectasis.
2. Mild four-chamber cardiomegaly.
3. Multiple bilateral thyroid nodules measuring up to 1.6 cm on the left. Recommend nonemergent ultrasound for further evaluation.
Total time spent today was 37 minutes for this encounter. Time includes reviewing laboratory test/imaging results, reviewing pertinent medical records, obtaining and reviewing medical history, performing an appropriate exam, ordering medications,
tests and procedures. Time also includes documentation of this encounter, coordinating patient care and communicating with other healthcare professionals. Total time does not include separately billed tests performed on this date of service.
Subjective Data
-
Date of Service:
Date of Service: March 27, 2024
Chief Complaint: Pulmonary Follow Up
Subjective:
Pt seen and evaluated this AM. She is on 2.5L/min NC, and breathing comfortably. She has no respiratory complaints - denies SOB, chest discomfort, JONES, abd pain, N/V/f/c.
Review of Systems
General: Other (negative unless mentioned above)
Objective Data
Data Reviewed
Vital Signs / I&O / Oxygen:
Vital Signs
Temp Pulse Resp BP Pulse Ox
98.5 F 81 16 155/87 99
03/27/24 07:00 03/27/24 08:25 03/27/24 08:25 03/27/24 07:00 03/27/24 08:25
Intake and Output
03/26/24 03/27/24 03/28/24
06:59 06:59 06:59
Intake Total 840 / 840 600 / 600
Output Total 250 / 250
Balance 840 / 840 350 / 350
SaO2 99
Nasal Cannula flow liters per 2
minute
Physical Exam
General: Respiratory Distress (negative), Comfortable, Chills (negative) and Sweats (negative)
HEENT: Normocephalic and Anicteric
Cardiovascular: Peripheral Edema (negative) and Other (Distant heart sounds; normal rate)
Respiratory: Wheeze (negative), Rhonchi (negative), Non-Labored Respirations and Other (Coarse BS heard bilaterally)
GI: Soft, Non Distended, Non Tender and Normal Bowel Sounds
Neurology: Awake, Alert and Tremors (negative)
Skin: Warm, Dry, Cyanosis (negative) and Jaundice (negative)
Labs/Micro/Reports
Lab Data
03/26/24 08:50
03/26/24 08:50
Microbiology
03/26/24 10:49 Pleural Fluid Gram Stain - Preliminary
[2024-03-27 11:00] VITALS: BP 138/80
[2024-03-27 12:08] LABS: NT-proBNP > 27000 pg/ml
--- NOTE | 2024-03-27 13:33 | W.PN.HOSP.TC ---
Today's Communication/Plan
-
ECHO
Add IV venofer
Assessment / Plan
Assessment / Plan
Acute Hypoxic Respiratory Insufficiency secondary to Large Left Pleural Effusion
-Continue supplemental oxygen; wean as able
-s/p diagnostic and therapeutic tap -exudative by protein criteria . Cyto pending. CX neg so far.
- Post tap chest x-ray shows possible trapped lung. appt pulmonary input - eval for CHF. ECHO pending. Elevated BNP noted - ? CHF vs CKD related. Consult Cards.
- supplemental oxygen for now
Right Hand Fracture
-Splint placed in ED
-Will need follow-up with ortho as outpatient
Frequent Falls
-cw PT/OT
-Check orthostatic VS
-Facial Bone CT no fracture
-Monitor on Telemetry
CKD 3
Cr better than her recent baseline
Follow BMP
Anemia, paperwork from facility indicates chronic anemia but baseline Hgb is unknown
- iron studies suggests ROBBIE. Heme test stools and start on IV iron.
-Trend Hgb
Dementia
-Continue Aricept and Namenda
-Monitor for mood/behavior changes during hospitalization
Anxiety/Depression
-Continue Zoloft, Remeron and Trazodone
Asthma, no acute exacerbation
-Continue Wixela and albuterol
-Continue montelukast
Hyperlipidemia
-Continue lovastatin
DVT proph: SCDs
Code Status: Full Code
Total time spent on today's encounter was 52 minutes which included time spent in counseling the patient regarding diagnosis and treatment plan as listed above, goals of care, and symptom management. Case was discussed with nursing staff,
specialists . All labs and imaging personally reviewed by me. Remainder the time spent in detailed review of previous records, lab data, imaging, and other medical provider documentation.
Anticipated Discharge: 24 - 48 hours
Subjective/Interval History
-
Date of Service: March 27, 2024
Pleasantly confused.
Forgot that she had a thoracentesis yesterday.
Denies shortness of breath or chest pain.
Objective Data
-
Vital Signs:
Vital Signs
Temp Pulse Resp BP Pulse Ox
98.3 F 88 18 138/80 99
03/27/24 11:00 03/27/24 11:00 03/27/24 11:00 03/27/24 11:00 03/27/24 11:00
I&O
03/26/24 03/27/24 03/28/24
06:59 06:59 06:59
Intake Total 840 / 840 600 / 600
Output Total 250 / 250
Balance 840 / 840 350 / 350
Review of Systems
-
Unable to obtain full review of systems at this time due to: Dementia
Physical Exam
-
General: No Apparent Distress
HEENT: Moist Mucous Membranes
Respiratory: Non Labored Respirations and Decreased Breath Sounds (left base); Negative Accessory Resp Muscle Use
Cardiac: Regular Rhythm and S1/S2
GI: Soft
Neuro: Awake, Alert, Oriented and No Motor Deficits
Psych: Calm and Confused; Negative Agitated
Data Reviewed
-
Labs: Labs Reviewed by me
--- NOTE | 2024-03-27 14:50 | CON.CAR ---
Addendum entered and electronically signed by Sabino Hdez MD 03/27/24 17:01:
I saw and examined the patient.
The LOGISTICS MANAGEMENT SPECIALIST's note was reviewed and I agree with the note.
Comment: Patient is an 83-year-old female with dementia, asthma, dyslipidemia, chronic kidney disease, and anemia of chronic disease who presented after a fall. She resides at a memory care unit due to her advanced dementia. Cardiology was
consulted for concern of heart failure.
I called and discussed her echo findings with Morgan and her sister Eva who are her next of kin. After discussion about her advanced dementia, poor short-term memory, and overall worsening clinical status given multiple recent falls and
progressive dementia they would prefer for a noninvasive approach at this time.
-IV diuresis today
-Start valsartan 40 mg
-Beta-jai to be added prior to discharge
Original Note:
Consultation
Consultation Request
Date/Time Consultation Requested: 03/27/2024 13:38
Date/Time Consultation Performed: 03/27/2024 14:50
Requesting Provider: Dr. Rhodes
Performing Provider: PETRA Patel for Dr. Hdez
Reason for Consultation: Left pleural effusion, concern for heart failure
Medical History
-
Chief Complaint: Fall
History of Present Illness:
Patient is an 83-year-old female with dementia, asthma, dyslipidemia, chronic kidney disease, and anemia of chronic disease who presented after a fall. She resides at a memory care unit due to her advanced dementia. The staff reports an increasing
number of falls. She was found to have bruising on her face. Imaging of her facial bones, head, and knees did not have any acute findings. However she was found to have a right hand fracture. She was notably hypoxic and had a large left pleural
effusion on her chest CT. Cardiology was consulted for concern of heart failure.
Past Medical History
Past Medical History: Asthma, Hypercholesterolemia, Psychiatric (Dementia, depression) and Other (Anemia)
Social History
Tobacco: Other (Unable to obtain)
Alcohol: Other (Unable to obtain)
Personal: Other (Unable to obtain)
Living: Halfway (Memory care unit)
Employment: Retired
Family History
Family History: Unable to Obtain
Allergies / Home Medications
Allergy/AdvReac Type Severity Reaction Status Date / Time
No Known Allergies Allergy Unverified 03/24/24 19:42
�Medication �Instructions �Recorded �Confirmed �Type
acetaminophen 325 mg tablet 650 mg PO Q4H PRN mild pain/fever 03/24/24 03/24/24 History
albuterol sulfate 90 mcg/actuation 2 puff inhalation HS 03/24/24 03/24/24 History
aerosol inhaler
albuterol sulfate 90 mcg/actuation 2 puff inhalation Q4HPRN PRN 03/24/24 03/24/24 History
aerosol inhaler cough/shortness of breath
aspirin 81 mg tablet,delayed 81 mg PO DAILY 03/24/24 03/24/24 History
release
donepezil 10 mg tablet 10 mg PO HS 03/24/24 03/24/24 History
fexofenadine 180 mg tablet 180 mg PO DAILY 03/24/24 03/24/24 History
fluticasone 250 mcg-salmeterol 50 1 inh inhalation BID 03/24/24 03/24/24 History
mcg/dose blistr powdr for
inhalation (Wixela Inhub)
lovastatin 40 mg tablet 40 mg PO QPM 03/24/24 03/24/24 History
memantine 10 mg tablet 10 mg PO BID 03/24/24 03/24/24 History
mirtazapine 7.5 mg tablet 7.5 mg PO HS 03/24/24 03/24/24 History
montelukast 10 mg tablet 10 mg PO DAILY 03/24/24 03/24/24 History
naproxen 500 mg tablet 500 mg PO BID PRN pain 03/24/24 03/24/24 History
omeprazole 20 mg capsule,delayed 20 mg PO DAILY 03/24/24 03/24/24 History
release
sertraline 100 mg tablet 100 mg PO DAILY 03/24/24 03/24/24 History
simethicone 125 mg chewable tablet 250 mg PO BID 03/24/24 03/24/24 History
trazodone 50 mg tablet 50 mg PO HS 03/24/24 03/24/24 History
triamcinolone acetonide 0.1 % 1 applic topical BID 03/24/24 03/24/24 History
topical cream
Review of Systems
-
Unable to obtain full review of systems at this time due to: Dementia
Physical Exam
Vital Signs
Temp Pulse Resp BP Pulse Ox
98.3 F 88 18 138/80 99
03/27/24 11:00 03/27/24 11:00 03/27/24 11:00 03/27/24 11:00 03/27/24 11:00
Lab Results
03/26/24 08:50
03/26/24 08:50
Tus-A-Katmabzoazo Pept > 62171 pg/ml 03/27/24 08:50
Physical Exam
General: Well Developed, Well Nourished, No Apparent Distress and Comfortable
HEENT: Normocephalic, Anicteric and Moist Mucous Membranes
Respiratory: Clear and Non Labored Respirations
Cardiac: S1/S2, Regular Rhythm, Murmur and Peripheral Edema (trace)
Breast: Deferred by me
GI: Soft, Non Tender, Non Distended and Normal Bowel Sounds
Rectal: Deferred by Provider
Genito-urinary: No Costovertebral Tender
Musculoskeletal: No Clubbing and No Cyanosis
Skin: Warm and Dry
Neuro: Oriented (x2 (person and time))
Hematologic/Lymphatic: No Lymphadenopathy
Psych: Calm
Impression / Plan
-
Acute hypoxic respiratory insufficiency in the setting of large left pleural effusion
-Status post thoracentesis
-Wean oxygen as tolerated
Heart failure, type unknown, acute - NEW
-She presented with a large left pleural effusion requiring thoracentesis and a proBNP greater than 27,000
-She did not receive any intravenous diuretic, furosemide 20mg IV, further diuresis to be determined tomorrow
-Echocardiogram today
Pleural effusion, large, left
-Status post thoracentesis for 1650 mL clear/fermin pleural fluid
Systolic murmur, echocardiogram
Frequent falls
Hand fracture, second metacarpal
CKD, stable
Anemia of chronic disease, no acute bleeding
Asthma, no acute exacerbation
Dementia, chronic, she is oriented to herself and place but does not recall any testing that was performed today nor the year
Data Reviewed
-
EKG: Report Reviewed by me (Sinus rhythm, LBBB, rate 79)
Radiology: Report Reviewed by me (CXR: Near complete opacification of the left hemithorax with large left pleural effusion and associated atelectasis)
Labs: Labs Reviewed by me
[2024-03-27 15:00] VITALS: BP 113/61; BP 118/65; BP 122/65; PULSE 81; PULSE 84; PULSE 88
[2024-03-27] MEDS: FERRLECIT 110 MG IV (15:05)
[2024-03-27] MEDS: LASIX 20 MG IV (17:36)
[2024-03-27] MEDS: LIPITOR 10 MG PO (17:36)
[2024-03-27] MEDS: DIOVAN 40 MG PO (17:48)
[2024-03-27 19:29] VITALS: BP 133/78; BP 135/79; PULSE 93; PULSE 94; PULSE 97
[2024-03-27] MEDS: VENTOLIN NEBULES 2.5 MG INH (19:46)
[2024-03-27] MEDS: DESYREL 50 MG PO (22:28)
[2024-03-27] MEDS: REMERON 7.5 MG PO (22:29)
[2024-03-27] MEDS: ARICEPT 10 MG PO (22:31)
[2024-03-27 23:09] VITALS: BP 138/73
[2024-03-28] VITALS (7 sets, daily range): BP systolic 108–150; BP diastolic 48–76; PULSE 72–82; BMI 21.7
--- NOTE | 2024-03-28 03:59 | DOWNTIME ---
There was a Fluid-1 Client Pharmacy Director Downtime on 03/28/2024 from 0100 to 03/28/2024 at 0355. Downtime documentation of patient's care, including medication administrations, has been reconciled in the electronic record per guidelines. Refer to the
patient's paper chart under the miscellaneous tab to see printed paper medication records and downtime forms.
--- NOTE | 2024-03-28 08:00 | W.PN.PUL3 ---
Today's Communication / Plan
-
Diuresis as per cardiology
GDMT
Advair
Home O2 assessment prior to discharge
Continue prn DuoNebs
Conservative management for valvular heart disease
PT/OT; fall precautions
No additional pulmonary recommendations at this time. Pulmonary service will now sign off. Please reconsult if there are any additional questions/concerns, or if patient's respiratory status deteriorates.
Assessment
-
Assessment: 83-year-old female non-smoker with a past medical history of dementia who presents with multiple falls over the last few days. She is currently living at [facility] unit. Patient initially endorsed bilateral knee pain
+ right hand pain. Also has bruising to the face. Patient not on blood thinners. History obtained from chart as patient is a poor historian. Initial vitals in the ER showed she was afebrile to 98.3 �F, pulse rate 86, breathing at 16 breaths/min,
BP 139/75 and saturating 90% on room air. Initial labs significant for Hb 9.8, iron saturation level 9, and urinalysis with trace leukocyte esterase. Smart imaging was done showing a 0.6 cm right frontal benign meningioma, a right hand comminuted,
displaced and mildly impacted fracture of the distal shaft of the second metacarpal, and CXR showed near complete opacification of the left hemithorax with large pleural effusion and associated atelectasis. Also a small right pleural effusion.
Large left-sided pleural effusion was confirmed with CT chest with slight rightward deviation of the trachea. CT facial bones showed no evidence of acute facial fracture. Thoracentesis was performed with 1650 cc of clear fermin-colored fluid
removed. Post thoracentesis CXR showed moderate left-sided pneumothorax likely representing trapped lung physiology. Repeat CXR shows persistent small left-sided pneumothorax without significant change. Pulmonary service now consulted for
additional management/recommendations.
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
Impression:
#Large left-sided pleural effusion s/p thoracentesis with resultant pneumothorax suspected to be ex vacuo from chronic pleural effusions
#Acute HFrEF in setting of valvular heart disease (moderate-severe and mild-moderate MR)
#Acute respiratory failure with hypoxia on supplemental oxygen
#Recent fall with right second metacarpal comminuted, displaced and mildly impacted fracture
#Leukopenia
#Anemia
#CKD III
#Abnormal urinalysis with trace leukocyte esterase
#Hx of asthma
#LBBB (seen on EKG from 03/24/2024 - no prior to confirm chronicity)
#Dementia
Plan:
- Repeat CXR from 03/26/2024 already shows reaccumulation of left-sided pleural fluid
- She likely has chronic pleural effusions - no prior imaging available to confirm this
- L-sided pneumothorax is likely ex-vacuo from chronic pleural effusions from heart failure
- Follow-up pleural fluid bacterial culture (NGTD); cytopathology is negative for malignant cells
- Obtain any prior chest imaging to assess for chronicity of pleural effusions
- Echo from 03/27/2024 shows reduced LVEF at 35-40% with no obvious WMA appreciated; concern for NICM; also moderate-severe , mild-moderate MR and normal RV size and function.
- Cardiology consulted - recs appreciated
- Continue diuresis prn and follow up UOP; given her moderate-severe , she is pre-load dependent so careful not to cause volume depletion. Aim for net negative fluid balance of 500cc-1L per 24 hrs; trend I/O and daily weight
- Defer GDMT to cardiology
- Continue Advair 115mcg with albuterol HS (home meds)
- if pt has difficulty with inspiratory technique then would change inhaler to aformoterol, budesonide + yupelri vs atrovent
- Maintain SpO2 >90-94% with supplemental O2 and wean as tolerated
- Check ambulatory pulse oximetry prior to discharge
- PT/OT; fall precautions
- Incentive spirometer encouraged (as tolerated given Hx of dementia)
- Replete electrolytes with K>4, Mg>2
- Maintain euglycemia with goal BG >100 and <180
- prn nebulized bronchodilators - not currently bronchospastic
- DVT ppx: start HSQ
No additional pulmonary recommendations at this time. Pulmonary service will now sign off. Thank you for allowing us to be involved in the care of this patient. Please reconsult if there are any additional questions/concerns, or if patient's
respiratory status deteriorates.
Data:
CXR 03/26/2024:
1. Small left pneumothorax, which may be related to trapped lung, without significant change compared to prior study.
2. Left basilar pneumothorax is less visible, likely related to reaccumulation of fluid.
CT Chest with IV contrast 03/24/2024:
1. There is a large left pleural effusion with complete collapse of the left lower lobe and partial collapse of the left upper lobe. There is associated slight rightward displacement of the trachea. There is additional small right pleural effusion
with right basilar atelectasis.
2. Mild four-chamber cardiomegaly.
3. Multiple bilateral thyroid nodules measuring up to 1.6 cm on the left. Recommend nonemergent ultrasound for further evaluation.
Total time spent today was 39 minutes for this encounter. Time includes reviewing laboratory test/imaging results, reviewing pertinent medical records, obtaining and reviewing medical history, performing an appropriate exam, ordering medications,
tests and procedures. Time also includes documentation of this encounter, coordinating patient care and communicating with other healthcare professionals. Total time does not include separately billed tests performed on this date of service.
Subjective Data
-
Date of Service:
Date of Service: March 28, 2024
Chief Complaint: Pulmonary Follow Up
Subjective:
Patient seen and evaluated today at bedside. She is on 2 L/min nasal cannula. Currently no respiratory complaints. Denies chest pain, JONES, abdominal pain, nausea, fevers chills.
Review of Systems
General: Other (Negative unless mentioned above)
Objective Data
Data Reviewed
Vital Signs / I&O / Oxygen:
Vital Signs
Temp Pulse Resp BP Pulse Ox
97.8 F 76 18 150/73 96
03/28/24 04:04 03/28/24 04:04 03/28/24 04:04 03/28/24 04:04 03/28/24 04:04
Intake and Output
03/27/24 03/28/24 03/29/24
06:59 06:59 06:59
Intake Total 600 / 600 1200 / 1200
Output Total 250 / 250 1025 / 1025
Balance 350 / 350 175 / 175
SaO2 96
Nasal Cannula flow liters per 2
minute
Physical Exam
General: Respiratory Distress (negative), Comfortable, Chills (negative) and Sweats (negative)
HEENT: Normocephalic and Anicteric
Cardiovascular: Peripheral Edema (negative) and Other (Distant heart sounds; normal rate)
Respiratory: Wheeze (negative), Rhonchi (negative), Non-Labored Respirations and Other (Coarse BS heard bilaterally)
GI: Soft, Non Distended, Non Tender and Normal Bowel Sounds
Neurology: Awake, Alert and Tremors (negative)
Skin: Warm, Dry, Cyanosis (negative) and Jaundice (negative)
Labs/Micro/Reports
Lab Data
03/26/24 08:50
03/26/24 08:50
Microbiology
03/26/24 10:49 Pleural Fluid Body Fluid Culture - Preliminary
No Growth After 18-24 Hours
03/26/24 10:49 Pleural Fluid Gram Stain - Preliminary
[2024-03-28] MEDS: ADVAIR HFA 115/21 MCG INHALER 2 PUFF INH ×2 (08:15→19:25)
--- NOTE | 2024-03-28 08:54 | W.PN.CD ---
Today's Communication / Plan
-
increase valsartan
Lasix PRN for weight gain
wean oxygen
Impression / Plan
-
A: 83-year-old female with dementia, asthma, dyslipidemia, chronic kidney disease, and anemia of chronic disease who presented after a fall. She resides at a memory care unit due to her advanced dementia. Cardiology was consulted for concern of
heart failure.
Acute hypoxic respiratory insufficiency in the setting of large left pleural effusion
-Status post thoracentesis
-Wean oxygen as tolerated
ACute on chronic HFrEF EF 35-40%
- Increase valsartan
- start metop XL 25
- will silva entresto and sglt2i
- wean oxygen
Mod-severe
- after discussion with family would prefer non-invasive route given advanced dementia
Pleural effusion, large, left
-Status post thoracentesis for 1650 mL clear/fermin pleural fluid
Frequent falls
Hand fracture, second metacarpal
CKD, stable
Anemia of chronic disease, no acute bleeding
Asthma, no acute exacerbation
Dementia, chronic, she is oriented to herself and place but does not recall any testing that was performed today nor the year
ECHO: CONCLUSIONS
TDS.
Normal LV size with moderately reduced systolic function.
LVEF is 35-40% by visual estimation.
Poor endocardial definition even with Definity enhancement, no obvious wall
motion abnormality.
In limited views normal RV size and function.
Mild to moderate mitral regurgitation.
Moderate to severe aortic stenosis.
Estimated pulmonary artery pressure of 15-20 mmHg assuming a right atrial
pressure of 3 mmHg.
No prior study available for comparison.
Subjective: NAEO patient has no new complaints
Physical Exam
Vital Signs/Labs
Vital Signs
Temp Pulse Resp BP Pulse Ox
97.5 F 75 16 138/76 95
03/28/24 07:00 03/28/24 08:21 03/28/24 08:21 03/28/24 07:00 03/28/24 08:21
03/27/24 03/28/24 03/29/24
06:59 06:59 06:59
Actual Weight 128 lb 7 oz 126 lb 1 oz
03/26/24 08:50
03/27/24
08:50
Skq-J-Yjuxtwkgplo Pept > [id number]
Physical Exam
Constitutional: No acute distress and Comfortable
EENT: Anicteric
Cardiovascular: Rhythm & rate is regular, Pedal edema is absent and Systolic murmur present
Respiratory: Respiratory effort normal and Lungs clear to auscul.
GI: Soft
Neuro/Psych: AO x 3
Data Reviewed
-
Date of Service: March 28, 2024
EKG: Tracing Personally Visualized and interpreted (sr)
Echo: Tracing Personally Visualized and interpreted
Labs: Labs Reviewed by me
[2024-03-28] MEDS: DIOVAN 40 MG PO (09:00)
[2024-03-28] MEDS: ZOLOFT 100 MG PO (09:00)
[2024-03-28] MEDS: PROTONIX 40 MG PO (09:00)
[2024-03-28] MEDS: NAMENDA 10 MG PO ×2 (09:00→20:32)
[2024-03-28] MEDS: SINGULAIR 10 MG PO (09:00)
[2024-03-28 10:21] LABS: Blood Urea Nitrogen 20 mg/dl (7-17); Calcium 8.6 mg/dl (8.4-10.2); Carbon Dioxide 32 mmol/L (22-30); Chloride 100 mmol/L (98-107); Estimated Creatinine Clearance 30 ml/min; Glucose 91 mg/dl (70-99); Magnesium 1.6 mg/dl (1.6-2.3); Sodium 142 mmol/L (135-145); eGFR 44.36
--- NOTE | 2024-03-28 10:22 | CM ---
Recommendation is for skilled placement vocational case manager spoke with patient's emergency contact, Morgan and he had many questions regarding skilled placement for patient, patient resides in [place] and Morgan feels patient is managed in
this setting, he is not sure if patient goes to skilled facility if that is best plan for patient. He is agreeable to vocational case manager sending a referral to [facility]. Referral sent.
Cost of Latoya Guerrero, and Zoe is $44 per month.
Plan; Possible skilled placement prior to returning to [facility].
[2024-03-28] MEDS: TOPROL XL 25 MG PO (11:00)
[2024-03-28] MEDS: FERRLECIT 110 MG IV (13:09)
--- NOTE | 2024-03-28 15:40 | W.PN.HOSP.TC ---
Today's Communication/Plan
-
DC to rehab in am if ok from cardiology standpoint.
Assessment / Plan
Assessment / Plan
Acute Hypoxic Respiratory Insufficiency secondary to Large Left Pleural Effusion
-Continue supplemental oxygen; wean as able
-s/p diagnostic and therapeutic tap -exudative by protein criteria . Cyto pending. CX neg so far.
- Post tap chest x-ray shows possible trapped lung. appt pulmonary input
- supplemental oxygen for now
Acute CHF with reduced EF
ECHO showed EF of 35 to 40% and significant valvular heart disease. Appreciate cardiology input. They had discussions with family on the plan of care is for supportive treatments. Initiate on beta-jai and Diovan. Diuretics per cardiology.
Follow weight daily.
Right Hand Fracture
-Splint placed in ED
-Will need follow-up with ortho as outpatient
Frequent Falls
-cw PT/OT
-Facial Bone CT no fracture
-Monitor on Telemetry
CKD 3
Cr better than her recent baseline
Follow BMP
Anemia, paperwork from facility indicates chronic anemia but baseline Hgb is unknown
- iron studies suggests ROBBIE. Heme test stools and started on IV iron.
-Trend Hgb
Dementia
-Continue Aricept and Namenda
-Monitor for mood/behavior changes during hospitalization
Anxiety/Depression
-Continue Zoloft, Remeron and Trazodone
Asthma, no acute exacerbation
-Continue Wixela and albuterol
-Continue montelukast
Hyperlipidemia
-Continue lovastatin
DVT proph: SCDs
Code Status: Full Code
DC planning
Anticipated Discharge: Within 24 hours
Subjective/Interval History
-
Date of Service: March 28, 2024
Pleasantly confused.
Objective Data
-
Labs:
Laboratory Results
03/28/24
09:01
Sodium 142
Potassium 4.0
Chloride 100
Carbon Dioxide 32 H
BUN 20 H
Creatinine 1.2 H
Glucose 91
Calcium 8.6
Vital Signs:
Vital Signs
Temp Pulse Resp BP Pulse Ox
98.5 F 72 18 129/70 97
03/28/24 15:18 03/28/24 15:18 03/28/24 15:18 03/28/24 15:18 03/28/24 15:18
I&O
03/27/24 03/28/24 03/29/24
06:59 06:59 06:59
Intake Total 600 / 600 1200 / 1200
Output Total 250 / 250 1025 / 1025
Balance 350 / 350 175 / 175
Review of Systems
-
Unable to obtain full review of systems at this time due to: Dementia
Respiratory: Denies Trouble Breathing
Cardiac: Denies Chest Pain
Abdomen/GI: Denies Abdominal Pain, Nausea or Vomiting
Neuro: Denies Dizzy
Physical Exam
-
General: No Apparent Distress
Respiratory: Crackles (Few in left base) and Non Labored Respirations; Negative Wheezes or Accessory Resp Muscle Use
Cardiac: Regular Rhythm, S1/S2 and Murmur
Neuro: Awake, Alert and Oriented (self)
Psych: Calm and Confused; Negative Agitated
Data Reviewed
-
Medical Tests (Nuc Med, Echo etc): Report Reviewed by me (ECHO)
Labs: Labs Reviewed by me
[2024-03-28] MEDS: LIPITOR 10 MG PO (17:16)
[2024-03-28] MEDS: VENTOLIN NEBULES INH (19:28)
[2024-03-28] MEDS: ARICEPT 10 MG PO (22:18)
[2024-03-28] MEDS: DESYREL 50 MG PO (22:18)
[2024-03-28] MEDS: REMERON 7.5 MG PO (22:18)
[2024-03-28] MEDS: HEPARIN 5000 UNITS SC (23:51)
[2024-03-29] VITALS (9 sets, daily range): BP systolic 101–147; BP diastolic 49–81; PULSE 67–79; O2SAT 95; BMI 21.5
[2024-03-29 06:26] LABS: Albumin 3.2 g/dl (3.5-5.0); Blood Urea Nitrogen 21 mg/dl (7-17); Calcium 8.8 mg/dl (8.4-10.2); Carbon Dioxide 35 mmol/L (22-30); Chloride 100 mmol/L (98-107); Estimated Creatinine Clearance 32 ml/min; Glucose 90 mg/dl (70-99); Potassium 4.4 mmol/L (3.5-5.1); Sodium 140 mmol/L (135-145); eGFR 49.24
[2024-03-29] MEDS: DIOVAN 80 MG PO (08:00)
[2024-03-29] MEDS: SINGULAIR 10 MG PO (08:00)
[2024-03-29] MEDS: PROTONIX 40 MG PO (08:00)
[2024-03-29] MEDS: ZOLOFT 100 MG PO (08:00)
[2024-03-29] MEDS: NAMENDA 10 MG PO ×2 (08:00→19:57)
[2024-03-29] MEDS: HEPARIN 5000 UNITS SC ×2 (08:00→17:31)
[2024-03-29] MEDS: TOPROL XL 25 MG PO (08:00)
[2024-03-29] MEDS: ADVAIR HFA 115/21 MCG INHALER 2 PUFF INH ×2 (08:09→20:40)
--- NOTE | 2024-03-29 09:16 | W.PN.CD ---
Today's Communication / Plan
-
Cont meds
OK to discharge from cardiac perspective
Impression / Plan
-
A: 83-year-old female with dementia, asthma, dyslipidemia, chronic kidney disease, and anemia of chronic disease who presented after a fall. She resides at a memory care unit due to her advanced dementia. Cardiology was consulted for concern of
heart failure.
Acute hypoxic respiratory insufficiency in the setting of large left pleural effusion
-Status post thoracentesis
-Wean oxygen as tolerated
ACute on chronic HFrEF EF 35-40%
- Increase valsartan
- start metop XL 25
- will discuss Entresto and sglt2 with family each are $44
Mod-severe
- after discussion with family would prefer non-invasive route given advanced dementia
Pleural effusion, large, left
-Status post thoracentesis for 1650 mL clear/fermin pleural fluid
Frequent falls
Hand fracture, second metacarpal
CKD, stable
Anemia of chronic disease, no acute bleeding
Asthma, no acute exacerbation
Dementia, chronic, she is oriented to herself and place but does not recall any testing that was performed today nor the year
ECHO: CONCLUSIONS
TDS.
Normal LV size with moderately reduced systolic function.
LVEF is 35-40% by visual estimation.
Poor endocardial definition even with Definity enhancement, no obvious wall
motion abnormality.
In limited views normal RV size and function.
Mild to moderate mitral regurgitation.
Moderate to severe aortic stenosis.
Estimated pulmonary artery pressure of 15-20 mmHg assuming a right atrial
pressure of 3 mmHg.
No prior study available for comparison.
Subjective: NAEO patient has no new complaints
Physical Exam
Vital Signs/Labs
Vital Signs
Temp Pulse Resp BP Pulse Ox
97.7 F 68 18 135/66 97
03/29/24 07:25 03/29/24 07:25 03/29/24 07:25 03/29/24 07:25 03/29/24 07:25
03/28/24 03/29/24 03/30/24
06:59 06:59 06:59
Actual Weight 126 lb 1 oz 125 lb 5 oz
03/26/24 08:50
03/29/24 05:44
Magnesium 1.6 mg/dl (1.6-2.3) 03/28/24 09:01
03/27/24
08:50
Rco-P-Iejngwnegjw Pept > [id number]
Physical Exam
Constitutional: No acute distress
EENT: Anicteric
Cardiovascular: Rhythm & rate is regular and Pedal edema present (trivial)
Respiratory: Respiratory effort normal
GI: Soft
Neuro/Psych: Alert
Data Reviewed
-
Date of Service: March 29, 2024
EKG: Tracing Personally Visualized and interpreted (sr)
Echo: Report Reviewed by me
Labs: Labs Reviewed by me
[2024-03-29] MEDS: MIRALAX 17 GRAMS PO (10:13)
--- NOTE | 2024-03-29 11:48 | W.PN.HOSP.TC ---
Today's Communication/Plan
-
DC
Assessment / Plan
Assessment / Plan
Acute Hypoxic Respiratory Insufficiency secondary to Large Left Pleural Effusion
- off of O2.
- s/p diagnostic and therapeutic tap -exudative by protein criteria . Cyto neg. CX neg so far.
- Post tap chest x-ray shows possible trapped lung. appt pulmonary input
Acute CHF with reduced EF
ECHO showed EF of 35 to 40% and significant valvular heart disease. Appreciate cardiology input. They had discussions with family on the plan of care is for supportive treatments. Initiate on beta-jai and Diovan. Diuretics per cardiology.
Follow weight daily.
Right Hand Fracture
-Splint placed in ED
-Will need follow-up with ortho as outpatient
Frequent Falls
-cw PT/OT
-Facial Bone CT no fracture
-Monitor on Telemetry
CKD 3
Cr better than her recent baseline
Follow BMP
Anemia, paperwork from facility indicates chronic anemia but baseline Hgb is unknown
- iron studies suggests ROBBIE. Heme test stools and started on IV iron.
-Trend Hgb
Dementia
-Continue Aricept and Namenda
-Monitor for mood/behavior changes during hospitalization
Anxiety/Depression
-Continue Zoloft, Remeron and Trazodone
Asthma, no acute exacerbation
-Continue Wixela and albuterol
-Continue montelukast
Hyperlipidemia
-Continue lovastatin
DVT proph: SCDs
Code Status: Full Code
DC to rehab if ok from cards standpoint.
Anticipated Discharge: Today
Subjective/Interval History
-
Date of Service: March 29, 2024
Pleasantly confused. Voices no specific complaints.
Today she is off of oxygen.
Objective Data
-
Labs:
Laboratory Results
03/29/24
05:44
Sodium 140
Potassium 4.4
Chloride 100
Carbon Dioxide 35 H
BUN 21 H
Creatinine 1.1 H
Glucose 90
Calcium 8.8
Vital Signs:
Vital Signs
Temp Pulse Resp BP Pulse Ox
98.1 F 73 20 122/70 94
03/29/24 11:24 03/29/24 11:24 03/29/24 11:24 03/29/24 11:24 03/29/24 11:24
I&O
03/28/24 03/29/24 03/30/24
06:59 06:59 06:59
Intake Total 1200 / 1200 240 / 240
Output Total 1025 / 1025
Balance 175 / 175 240 / 240
Review of Systems
-
Unable to obtain full review of systems at this time due to: Dementia
Physical Exam
-
General: No Apparent Distress
Respiratory: Crackles (few in left base) and Non Labored Respirations; Negative Wheezes or Accessory Resp Muscle Use
Cardiac: Regular Rhythm, S1/S2 and Murmur
Neuro: Awake, Alert and Oriented (self only)
Psych: Calm and Confused; Negative Agitated
Data Reviewed
-
Labs: Labs Reviewed by me
[2024-03-29] MEDS: FERRLECIT 110 MG IV (15:00)
--- NOTE | 2024-03-29 16:11 | CM ---
Addendum entered by Adore Sorto 03/29/24 16:16:
Patient is current with [facility].
[facility]
[phone]

Original Note:
Chart reviewed and per physician patient is ready for discharge, referral sent to [facility], disability case manager reached out to admissions to confirm bed for patient, multiple messages left however no return call. business integration manager spoke
with patient's emergency contact, Morgan and he is agreeable to skilled placement at [facility].
Plan; Skilled placement waiting on determination from [facility], needs Auth from [place].
[2024-03-29] MEDS: LIPITOR 10 MG PO (17:32)
[2024-03-29] MEDS: ARICEPT 10 MG PO (21:53)
[2024-03-29] MEDS: DESYREL 50 MG PO (21:53)
[2024-03-29] MEDS: REMERON 7.5 MG PO (21:53)
[2024-03-30] MEDS: HEPARIN 5000 UNITS SC ×3 (00:32→15:44)
[2024-03-30 03:10] VITALS: BP 113/53
[2024-03-30 06:00] VITALS: BMI 21.3
[2024-03-30] MEDS: ADVAIR HFA 115/21 MCG INHALER 2 PUFF INH ×2 (07:25→20:14)
--- NOTE | 2024-03-30 07:59 | RESPNOTE ---
patient found on 3L O2, SpO2 98%
weaned to RA, SpO2 92% RA after 30 minutes
[2024-03-30 08:00] VITALS: BP 118/56
[2024-03-30 08:12] LABS: Blood Urea Nitrogen 26 mg/dl (7-17); Calcium 8.7 mg/dl (8.4-10.2); Carbon Dioxide 34 mmol/L (22-30); Chloride 100 mmol/L (98-107); Estimated Creatinine Clearance 30 ml/min; Glucose 95 mg/dl (70-99); Phosphorus 3.8 mg/dl (2.5-4.5); Potassium 4.4 mmol/L (3.5-5.1); Sodium 138 mmol/L (135-145); eGFR 44.36
[2024-03-30] MEDS: NAMENDA 10 MG PO ×2 (09:44→20:58)
[2024-03-30] MEDS: ZOLOFT 100 MG PO (09:44)
[2024-03-30] MEDS: SINGULAIR 10 MG PO (09:44)
[2024-03-30] MEDS: DIOVAN 80 MG PO (09:44)
[2024-03-30] MEDS: PROTONIX 40 MG PO (09:45)
[2024-03-30] MEDS: TOPROL XL 25 MG PO (09:45)
[2024-03-30] MEDS: MIRALAX 17 GRAMS PO (09:46)
[2024-03-30 12:00] VITALS: BP 115/60
--- NOTE | 2024-03-30 13:14 | W.PN.HOSP.TC ---
Today's Communication/Plan
-
DC
Assessment / Plan
Assessment / Plan
Acute Hypoxic Respiratory Insufficiency secondary to Large Left Pleural Effusion
- off of O2.
- s/p diagnostic and therapeutic tap -exudative by protein criteria . Cyto neg. CX neg so far.
- Post tap chest x-ray shows possible trapped lung. appt pulmonary input
Acute CHF with reduced EF
ECHO showed EF of 35 to 40% and significant valvular heart disease. Appreciate cardiology input. They had discussions with family on the plan of care is for supportive treatments. Initiate on beta-jai and Diovan. Diuretics not initiated.
Follow weight daily.
Right Hand Fracture
-Splint placed in ED
-Will need follow-up with ortho as outpatient
Frequent Falls
-cw PT/OT
-Facial Bone CT no fracture
-Monitor on Telemetry
CKD 3
Cr better than her recent baseline
Follow BMP
Anemia, paperwork from facility indicates chronic anemia but baseline Hgb is unknown
- iron studies suggests ROBBIE. Heme test stools and started on IV iron.
-Trend Hgb
Dementia
-Continue Aricept and Namenda
-Monitor for mood/behavior changes during hospitalization
Anxiety/Depression
-Continue Zoloft, Remeron and Trazodone
Asthma, no acute exacerbation
-Continue Wixela and albuterol
-Continue montelukast
Hyperlipidemia
-Continue lovastatin
DVT proph: SCDs
Code Status: Full Code
DC cards yesterday - stable for dc from their end
Medically stable for dc
Need SNF on dc
DW CM - she is working on placement
Anticipated Discharge: Today
Subjective/Interval History
-
Date of Service: March 30, 2024
No overnight events.
Pleasantly confused.
Objective Data
-
Labs:
Laboratory Results
03/30/24
07:36
Sodium 138
Potassium 4.4
Chloride 100
Carbon Dioxide 34 H
BUN 26 H
Creatinine 1.2 H
Glucose 95
Calcium 8.7
Vital Signs:
Vital Signs
Temp Pulse Resp BP Pulse Ox
97.9 F 73 18 115/60 96
03/30/24 12:00 03/30/24 12:00 03/30/24 12:00 03/30/24 12:00 03/30/24 12:00
I&O
03/29/24 03/30/24 03/31/24
06:59 06:59 06:59
Intake Total 240 / 240 1080 / 1080
Balance 240 / 240 1080 / 1080
Review of Systems
-
Unable to obtain full review of systems at this time due to: Dementia
Respiratory: Denies Trouble Breathing
Cardiac: Denies Chest Pain
Abdomen/GI: Denies Nausea or Vomiting
Neuro: Denies Dizzy
Physical Exam
-
General: No Apparent Distress
HEENT: Moist Mucous Membranes
Respiratory: Clear to Auscultation and Non Labored Respirations; Negative Accessory Resp Muscle Use
Cardiac: Regular Rhythm, S1/S2 and Murmur
Neuro: Awake, Alert and Oriented (Self only)
Psych: Calm
Data Reviewed
-
Labs: Labs Reviewed by me
[2024-03-30] MEDS: FERRLECIT 110 MG IV (15:43)
[2024-03-30 16:00] VITALS: BP 120/65
--- NOTE | 2024-03-30 16:08 | CM ---
Patient was reevaluated today for skilled placement v's return to [facility] with [facility] visiting nurses and physical therapy still recommend skilled placement, per admissions at [facility], they have no beds
available, referrals sent to [facility] and [facility]
Plan; skilled placement, [place] [facility] [place], [facility] and [facility].
[2024-03-30] MEDS: LIPITOR 10 MG PO (18:21)
[2024-03-30 19:40] VITALS: BP 105/54
[2024-03-30] MEDS: DESYREL 50 MG PO (22:33)
[2024-03-30] MEDS: ARICEPT 10 MG PO (22:33)
[2024-03-30] MEDS: REMERON 7.5 MG PO (22:33)
[2024-03-30 23:30] VITALS: BP 115/68
[2024-03-31] MEDS: HEPARIN 5000 UNITS SC ×4 (00:13→23:16)
[2024-03-31 06:00] VITALS: BMI 21.5
[2024-03-31 07:00] VITALS: BP 109/59
[2024-03-31 07:38] LABS: Albumin 3.3 g/dl (3.5-5.0); Blood Urea Nitrogen 27 mg/dl (7-17); Calcium 8.6 mg/dl (8.4-10.2); Carbon Dioxide 30 mmol/L (22-30); Chloride 101 mmol/L (98-107); Estimated Creatinine Clearance 27 ml/min; Glucose 100 mg/dl (70-99); Phosphorus 2.6 mg/dl (2.5-4.5); Potassium 4.3 mmol/L (3.5-5.1); Sodium 140 mmol/L (135-145)
[2024-03-31] MEDS: ADVAIR HFA 115/21 MCG INHALER 2 PUFF INH ×2 (08:21→19:28)
[2024-03-31] MEDS: MIRALAX 17 GRAMS PO (09:42)
[2024-03-31] MEDS: TOPROL XL 25 MG PO (09:43)
[2024-03-31] MEDS: DIOVAN 80 MG PO (09:43)
[2024-03-31] MEDS: SINGULAIR 10 MG PO (09:43)
[2024-03-31] MEDS: ZOLOFT 100 MG PO (09:43)
[2024-03-31] MEDS: PROTONIX 40 MG PO (09:44)
[2024-03-31] MEDS: NAMENDA 10 MG PO ×2 (09:44→20:23)
--- NOTE | 2024-03-31 10:21 | W.PN.HOSP.TC ---
Today's Communication/Plan
-
Ongoing disposition efforts
Assessment / Plan
Assessment / Plan
Acute Hypoxic Respiratory Insufficiency secondary to Large Left Pleural Effusion
- off of O2.
- s/p diagnostic and therapeutic tap -exudative by protein criteria . Cyto neg. CX neg so far.
- Post tap chest x-ray shows possible trapped lung. appt pulmonary input
Acute CHF with reduced EF
ECHO showed EF of 35 to 40% and significant valvular heart disease. Appreciate cardiology input. They had discussions with family on the plan of care is for supportive treatments. Initiate on beta-jai and Diovan. Diuretics not initiated.
Follow weight daily.
Right Hand Fracture
-Splint placed in ED
-Will need follow-up with ortho as outpatient
Frequent Falls
-cw PT/OT
-Facial Bone CT no fracture
-Monitor on Telemetry
CKD 3
Cr better than her recent baseline
Follow BMP
Anemia, paperwork from facility indicates chronic anemia but baseline Hgb is unknown
- iron studies suggests ROBBIE. Heme test stools and started on IV iron.
-Trend Hgb
Dementia
-Continue Aricept and Namenda
-Monitor for mood/behavior changes during hospitalization
Anxiety/Depression
-Continue Zoloft, Remeron and Trazodone
Asthma, no acute exacerbation
-Continue Wixela and albuterol
-Continue montelukast
Hyperlipidemia
-Continue lovastatin
DVT proph: SCDs
Code Status: Full Code
Remains medically stable for dc
Need SNF on dc
Anticipated Discharge: Today
Subjective/Interval History
-
Date of Service: March 31, 2024
Pleasantly confused. She is not aware she is in the hospital nor she is aware that she had a left thoracentesis done.
Objective Data
-
Labs:
Laboratory Results
03/31/24
06:42
Sodium 140
Potassium 4.3
Chloride 101
Carbon Dioxide 30
BUN 27 H
Creatinine 1.3 H
Glucose 100 H
Calcium 8.6
Vital Signs:
Vital Signs
Temp Pulse Resp BP Pulse Ox
98.5 F 81 16 109/59 94
03/31/24 07:00 03/31/24 08:25 03/31/24 08:25 03/31/24 07:00 03/31/24 08:25
I&O
03/30/24 03/31/24 04/01/24
06:59 06:59 06:59
Intake Total 1080 / 1080 480 / 480
Balance 1080 / 1080 480 / 480
Review of Systems
-
Unable to obtain full review of systems at this time due to: Dementia
Respiratory: Denies Trouble Breathing
Cardiac: Denies Chest Pain
Abdomen/GI: Denies Abdominal Pain, Nausea or Vomiting
Neuro: Denies Dizzy
Physical Exam
-
General: Comfortable; Negative Respiratory Distress
Respiratory: Non Labored Respirations; Negative Accessory Resp Muscle Use
Cardiac: Regular Rhythm, S1/S2 and Murmur
GI: Soft
Neuro: Awake, Alert and Oriented (self)
Psych: Calm and Confused; Negative Agitated
Data Reviewed
-
Labs: Labs Reviewed by me
[2024-03-31 11:00] VITALS: BP 125/80; BP 141/78; BP 147/80; PULSE 74; PULSE 77; PULSE 81
[2024-03-31] MEDS: FERRLECIT 110 MG IV (13:28)
[2024-03-31 15:00] VITALS: BP 124/62
[2024-03-31] MEDS: LIPITOR 10 MG PO (17:15)
[2024-03-31] MEDS: DESYREL 50 MG PO (20:23)
[2024-03-31] MEDS: REMERON 7.5 MG PO (20:23)
[2024-03-31] MEDS: ARICEPT 10 MG PO (20:23)
[2024-03-31 23:11] VITALS: BP 118/55
[2024-04-01 03:39] VITALS: BP 155/105; BP 156/95; PULSE 82; PULSE 90
[2024-04-01 06:00] VITALS: BMI 21.0
[2024-04-01 07:00] VITALS: BP 145/72
[2024-04-01] MEDS: ADVAIR HFA 115/21 MCG INHALER 2 PUFF INH ×2 (08:12→19:34)
[2024-04-01] MEDS: TOPROL XL 25 MG PO (08:49)
[2024-04-01] MEDS: SINGULAIR 10 MG PO (08:49)
[2024-04-01] MEDS: PROTONIX 40 MG PO (08:49)
[2024-04-01] MEDS: DIOVAN 80 MG PO (08:49)
[2024-04-01] MEDS: MIRALAX 17 GRAMS PO (08:49)
[2024-04-01] MEDS: HEPARIN 5000 UNITS SC ×3 (08:49→23:58)
[2024-04-01] MEDS: NAMENDA 10 MG PO ×2 (08:49→19:45)
[2024-04-01] MEDS: ZOLOFT 100 MG PO (08:49)
--- NOTE | 2024-04-01 10:33 | W.PN.HOSP.TC ---
Today's Communication/Plan
-
Ongoing dispo efforts
Assessment / Plan
Assessment / Plan
Acute Hypoxic Respiratory Insufficiency secondary to Large Left Pleural Effusion
- Remains off of O2.
- s/p diagnostic and therapeutic tap -exudative by protein criteria . Cyto neg. CX neg so far.
- Post tap chest x-ray shows possible trapped lung. appt pulmonary input
Acute CHF with reduced EF
ECHO showed EF of 35 to 40% and significant valvular heart disease. Appreciate cardiology input. They had discussions with family on the plan of care is for supportive treatments. Initiate on beta-jai and Diovan. Diuretics not initiated.
Follow weight daily.
Right Hand Fracture
-Splint placed in ED
-Will need follow-up with ortho as outpatient
Frequent Falls
-cw PT/OT
-Facial Bone CT no fracture
-Monitor on Telemetry
CKD 3
Cr better than her recent baseline
Follow BMP
Anemia, paperwork from facility indicates chronic anemia but baseline Hgb is unknown
- iron studies suggests ROBBIE. Heme test stools and started on IV iron.
-Trend Hgb
Dementia
-Continue Aricept and Namenda
-Monitor for mood/behavior changes during hospitalization
Anxiety/Depression
-Continue Zoloft, Remeron and Trazodone
Asthma, no acute exacerbation
-Continue Wixela and albuterol
-Continue montelukast
Hyperlipidemia
-Continue lovastatin
DVT proph: SCDs
Code Status: Full Code
Remains medically stable for dc
Need SNF on dc
Anticipated Discharge: Within 24 hours
Subjective/Interval History
-
Date of Service: April 01, 2024
Objective Data
-
Vital Signs:
Vital Signs
Temp Pulse Resp BP Pulse Ox
98.1 F 82 16 145/72 92
04/01/24 07:00 04/01/24 08:17 04/01/24 08:17 04/01/24 07:00 04/01/24 08:17
I&O
03/31/24 04/01/24 04/02/24
06:59 06:59 06:59
Intake Total 480 / 480 1380 / 1380
Balance 480 / 480 1380 / 1380
[2024-04-01 15:00] VITALS: BP 136/73
[2024-04-01] MEDS: LIPITOR 10 MG PO (17:02)
[2024-04-01] MEDS: REMERON 7.5 MG PO (19:45)
[2024-04-01] MEDS: DESYREL 50 MG PO (19:45)
[2024-04-01] MEDS: ARICEPT 10 MG PO (19:45)
[2024-04-01 23:55] VITALS: BP 98/50
[2024-04-02] VITALS: BP 98/50
[2024-04-02 06:00] VITALS: BMI 21.9
[2024-04-02 07:28] VITALS: BP 106/59
[2024-04-02] MEDS: ADVAIR HFA 115/21 MCG INHALER 2 PUFF INH ×2 (07:49→20:02)
[2024-04-02] MEDS: DIOVAN 80 MG PO (10:35)
[2024-04-02] MEDS: PROTONIX 40 MG PO (10:35)
[2024-04-02] MEDS: SINGULAIR 10 MG PO (10:36)
[2024-04-02] MEDS: NAMENDA 10 MG PO ×2 (10:36→20:22)
[2024-04-02] MEDS: TOPROL XL 25 MG PO (10:36)
[2024-04-02] MEDS: ZOLOFT 100 MG PO (10:37)
[2024-04-02] MEDS: MIRALAX 17 GRAMS PO (10:37)
[2024-04-02] MEDS: HEPARIN 5000 UNITS SC ×3 (10:37→23:43)
--- NOTE | 2024-04-02 13:55 | W.PN.HOSP.TC ---
Today's Communication/Plan
-
For SNF
Assessment / Plan
Assessment / Plan
Imaging
Physical Exam
NAD, resting comfortably in bed
Scleral anicteric
Moist mucous membranes
No JVD
CTA bilateral
Normal S1-S2 no murmurs
Soft nontender nondistended bowel sounds active
No peripheral pitting edema
Moves extremities spontaneously
AAOx3
Assessment and Plan
Acute hypoxemic respiratory failure now resolved on room air
-Secondary to large left-sided pleural effusion, s/p thoracentesis that was exudative believed to be chronic effusion/ex vacuo
-Postop chest x-ray shows likely trapped lung physiology
-Pulmonary following
Chronic HFrEF, EF 35 to 40%, NYHA classification 1
-Euvolemic on exam
-Not on diuretic
-Continue valsartan and beta-jai
-Cardiology following
Right hand fracture
-Splint in place
-Outpatient orthopedic follow-up
Frequent falls
-On tele-
-PT OT follow
CKD stage III
-Follow BMP
-Avoid nephrotoxins hypotension
-Monitor urinary output
Dementia
-Continue Aricept and Namenda
-Monitor for mood behavioral changes
For SNF, med cleared.
Anticipated Discharge: Within 24 hours
Subjective/Interval History
-
Date of Service: April 02, 2024
seen and examined. no new comapints. no acute overnigth events
Objective Data
-
Vital Signs:
Vital Signs
Temp Pulse Resp BP Pulse Ox
98.7 F 78 16 106/59 91
04/02/24 07:28 04/02/24 07:51 04/02/24 07:51 04/02/24 07:28 04/02/24 07:51
I&O
04/01/24 04/02/24 04/03/24
06:59 06:59 06:59
Intake Total 1380 / 1380 1020 / 1020
Balance 1380 / 1380 1020 / 1020
[2024-04-02 15:28] VITALS: BP 124/66
[2024-04-02 15:49] VITALS: BP 124/66; PULSE 78
--- NOTE | 2024-04-02 16:43 | CM ---
Calls placed to skilled facilities, no beds at [facility], patient's first choice, also no beds at [facility], per admissions at [facility] they are asking about future plan for patient, physician made aware.
Plan; Skilled placement will reach out to [facility] and [facility] again tomorrow.
[2024-04-02] MEDS: LIPITOR 10 MG PO (17:59)
[2024-04-02] MEDS: REMERON 7.5 MG PO (20:22)
[2024-04-02] MEDS: DESYREL 50 MG PO (20:22)
[2024-04-02] MEDS: ARICEPT 10 MG PO (20:22)
[2024-04-02 23:34] VITALS: BP 118/68
[2024-04-03 06:00] VITALS: BMI 22.4
[2024-04-03 06:21] VITALS: BMI 22.1
[2024-04-03 06:22] VITALS: BMI 21.4
[2024-04-03 07:28] VITALS: BP 132/74
[2024-04-03] MEDS: ADVAIR HFA 115/21 MCG INHALER 2 PUFF INH ×2 (07:44→19:22)
[2024-04-03] MEDS: PROTONIX 40 MG PO (08:57)
[2024-04-03] MEDS: DIOVAN 80 MG PO (08:57)
[2024-04-03] MEDS: ZOLOFT 100 MG PO (08:57)
[2024-04-03] MEDS: TOPROL XL 25 MG PO (08:57)
[2024-04-03] MEDS: HEPARIN 5000 UNITS SC ×2 (08:57→17:17)
[2024-04-03] MEDS: SINGULAIR 10 MG PO (08:57)
[2024-04-03] MEDS: MIRALAX 17 GRAMS PO (08:57)
[2024-04-03] MEDS: NAMENDA 10 MG PO ×2 (08:57→20:19)
--- NOTE | 2024-04-03 11:30 | CM ---
Addendum entered by Adore Sorto 04/03/24 16:30:
Auth submitted to patient's insurance [id number] ,
Pending ref # [id number]
Addendum entered by Adore Sorto 04/03/24 14:41:
Patient has been accepted at [facility] tomorrow, needs Auth. Patient and family are aware and agreeable to plan.
Original Note:
facilities manager reviewed patient's chart and met with patient and reached out to patient's primary contact, Morgan by phone, patient has been referred to [facility], [facility] , [facility] and [facility], still
waiting on a facility to accept patient, patient was admitted from [facility].
Plan; Skilled placement waiting on a facility to accept patient.
--- NOTE | 2024-04-03 14:24 | W.PN.HOSP.TC ---
Today's Communication/Plan
-
Assessment / Plan
Assessment / Plan
Physical Exam
NAD, resting comfortably in bed
Scleral anicteric
Moist mucous membranes
No JVD
CTA bilateral
Normal S1-S2 no murmurs
Soft nontender nondistended bowel sounds active
No peripheral pitting edema
Moves extremities spontaneously
AAOx3
Assessment and Plan
Acute hypoxemic respiratory failure now resolved on room air
-Secondary to large left-sided pleural effusion, s/p thoracentesis that was exudative believed to be chronic effusion/ex vacuo
-Postop chest x-ray shows likely trapped lung physiology
-Pulmonary following
Chronic HFrEF, EF 35 to 40%, NYHA classification 1
-Euvolemic on exam
-Not on diuretic
-Continue valsartan and beta-jai
-Cardiology following
Right hand fracture
-Splint in place
-Outpatient orthopedic follow-up
Frequent falls
-On tele-
-PT OT follow
CKD stage III
-Follow BMP
-Avoid nephrotoxins hypotension
-Monitor urinary output
Dementia
-Continue Aricept and Namenda
-Monitor for mood behavioral changes
For SNF, med cleared.
Anticipated Discharge: Within 24 hours
Subjective/Interval History
-
Date of Service: April 03, 2024
seen and examined
no new comaplaints
no acute ovenright events
Objective Data
-
Vital Signs:
Vital Signs
Temp Pulse Resp BP Pulse Ox
97.8 F 72 14 132/74 97
04/03/24 07:28 04/03/24 07:48 04/03/24 07:48 04/03/24 07:28 04/03/24 07:28
I&O
04/02/24 04/03/24 04/04/24
06:59 06:59 06:59
Intake Total 1020 / 1020 1440 / 1440
Balance 1020 / 1020 1440 / 1440
[2024-04-03 15:11] VITALS: BP 125/68
[2024-04-03] MEDS: LIPITOR 10 MG PO (17:17)
[2024-04-03] MEDS: REMERON 7.5 MG PO (21:18)
[2024-04-03] MEDS: DESYREL 50 MG PO (21:18)
[2024-04-03] MEDS: ARICEPT 10 MG PO (21:18)
[2024-04-03 22:30] VITALS: BP 103/51; BP 107/55; PULSE 70
[2024-04-04] MEDS: HEPARIN 5000 UNITS SC ×2 (00:03→08:47)
[2024-04-04 06:00] VITALS: BMI 21.8
[2024-04-04] MEDS: ADVAIR HFA 115/21 MCG INHALER 2 PUFF INH (07:27)
[2024-04-04 07:52] VITALS: BP 103/51
[2024-04-04] MEDS: TOPROL XL 25 MG PO (08:46)
[2024-04-04] MEDS: DIOVAN 80 MG PO (08:47)
[2024-04-04] MEDS: PROTONIX 40 MG PO (08:47)
[2024-04-04] MEDS: SINGULAIR 10 MG PO (08:47)
[2024-04-04] MEDS: ZOLOFT 100 MG PO (08:47)
[2024-04-04] MEDS: NAMENDA 10 MG PO (08:47)
[2024-04-04] MEDS: MIRALAX PO (08:48)
--- NOTE | 2024-04-04 10:51 | CM ---
Patient has been cleared for discharge today, bed is available at [facility] and Auth received from [facility] and [facility], ambulance pickler helper has been arranged for 2pm, Morgan, emergency contact for patient has been made aware and is
agreeable to plan, IMM placed on chart. Auth 04/04/24 to 04/06/24, Ref # [id number] NRD with Daxa Stanton .
Plan: Skilled placement at [facility].
Report [phone]
fax [phone]
[2024-04-04 13:15] VITALS: BP 127/60
[2024-04-04 13:58] VITALS: BP 127/71; PULSE 71; O2SAT 95
--- NOTE | 2024-04-04 17:07 | W.PN.HOSP.TC ---
Today's Communication/Plan
-
dc to snf
Assessment / Plan
Assessment / Plan
Physical Exam
NAD, resting comfortably in bed
Scleral anicteric
Moist mucous membranes
No JVD
CTA bilateral
Normal S1-S2 no murmurs
Soft nontender nondistended bowel sounds active
No peripheral pitting edema
Moves extremities spontaneously
AAOx3
Assessment and Plan
Acute hypoxemic respiratory failure now resolved on room air
-Secondary to large left-sided pleural effusion, s/p thoracentesis that was exudative believed to be chronic effusion/ex vacuo
-Postop chest x-ray shows likely trapped lung physiology
-Pulmonary following
Chronic HFrEF, EF 35 to 40%, NYHA classification 1
-Euvolemic on exam
-Not on diuretic
-Continue valsartan and beta-jai
-Cardiology following
Right hand fracture
-Splint in place
-Outpatient orthopedic follow-up
Frequent falls
-On tele-
-PT OT follow
CKD stage III
-Follow BMP
-Avoid nephrotoxins hypotension
-Monitor urinary output
Dementia
-Continue Aricept and Namenda
-Monitor for mood behavioral changes
For SNF, med cleared.
Anticipated Discharge: Today
Subjective/Interval History
-
Date of Service: April 04, 2024
seen and examined. just finished brushing her teeth.
no pain no sob
ready to be discharged to snf
Objective Data
-
Vital Signs:
Vital Signs
Temp Pulse Resp BP Pulse Ox
97.4 F 62 18 127/60 97
04/04/24 13:15 04/04/24 13:15 04/04/24 13:15 04/04/24 13:15 04/04/24 13:15
I&O
04/03/24 04/04/24 04/05/24
06:59 06:59 06:59
Intake Total 1440 / 1440 780 / 780
Balance 1440 / 1440 780 / 780
--- NOTE | 2024-04-04 17:08 | W.DCSUMMARY ---
Discharge Summary
Discharge Data
Date of Admission: 03/25/24
Date of Discharge: 04/04/24
-
Pending Results: No
Hospital Course
83 y/o female past medical history of dementia who presents with frequent falls. Patient resides at a local memory care unit, and due to her dementia she is unable to provide any history. Apparently patient has been having an increasing number
falls. Upon arrival to the emergency department she was noted to have bruising of her face, and she was also found to be hypoxic. Work-up in the emergency department reveal large left pleural effusion and right hand fracture. Smart imaging was done
showing a 0.6 cm right frontal benign meningioma, a right hand comminuted, displaced and mildly impacted fracture of the distal shaft of the second metacarpal, and CXR showed near complete opacification of the left hemithorax with large pleural
effusion and associated atelectasis. Also a small right pleural effusion. Large left-sided pleural effusion was confirmed with CT chest with slight rightward deviation of the trachea. CT facial bones showed no evidence of acute facial fracture.
Thoracentesis was performed with 1650 cc of clear fermin-colored fluid removed. Post thoracentesis CXR showed moderate left-sided pneumothorax likely representing trapped lung physiology. Repeat CXR shows persistent small left-sided pneumothorax
without significant change. There was concern for Heart failure therefore, BNP obtained which was 27,000 followed by a 2d echo which showed and EF of 35-40%. Cardiology evaluated and recommened to increased valsartan dose and start metoprolol.
Cardiology briefly diuresised her. Cardiology also spoke with [facility]K and would prefer a noninvasive approch to this new onset heart failure. 2d echo also showed moderate to severe . PT evalued rec SNF. Post SNF she should return to memory care unit.
CT head
IMPRESSION:
No acute intracranial abnormality.
0.6 cm extra-axial calcified right frontal benign meningioma.
Hand xray
IMPRESSION:
Comminuted, displaced and mildly impacted fracture of the distal shaft of the second metacarpal.
Severe degenerative changes of the first CMC joint and DIP joints with ulnar subluxation of the distal phalanx of the index finger.
Knee xray
Left knee IMPRESSION:
No acute osseous abnormality. Severe degenerative changes of the patellofemoral and medial compartments
Right knee IMPRESSION:
No acute osseous abnormality. Severe degenerative changes of the knee most pronounced in the medial and patellofemoral compartments.
CXR
IMPRESSION:
Near-complete opacification of the left hemithorax with large left pleural effusion and associated atelectasis. There is additional small right pleural effusion. In the setting of trauma a hemothorax is also possible. No pneumothorax
Chest CT
IMPRESSION:
1. There is a large left pleural effusion with complete collapse of the left lower lobe and partial collapse of the left upper lobe. There is associated slight rightward displacement of the trachea. There is additional small right pleural effusion
with right basilar atelectasis.
2. Mild four-chamber cardiomegaly.
3. Multiple bilateral thyroid nodules measuring up to 1.6 cm on the left. Recommend nonemergent ultrasound for further evaluation.
CT Facial bones
IMPRESSION:
No evidence of acute facial fracture. There is a a soft tissue density along the posterior right maxillary process, possible chronic dental infectious/inflammatory process. No discrete collection.
Preliminary report provided by [facility] at 0051 03/25/2024.
Thoracentesis
IMPRESSION: Successful ultrasound-guided thoracentesis, yielding 1650 cc of clear fermin pleural fluid.
CXR
IMPRESSION:
1. Moderate left pneumothorax, which may represent trapped lung. Chest x-ray will be repeated to exclude expanding pneumothorax.
2. Hazy right basilar opacity, which may represent right lower lobe airspace disease and/or small right pleural effusion.
CXR
IMPRESSION:
1. Small left pneumothorax, which may be related to trapped lung, without significant change compared to prior study.
2. Left basilar pneumothorax is less visible, likely related to reaccumulation of fluid.
2d echo
CONCLUSIONS
TDS.
Normal LV size with moderately reduced systolic function.
LVEF is 35-40% by visual estimation.
Poor endocardial definition even with Definity enhancement, no obvious wall
motion abnormality.
In limited views normal RV size and function.
Mild to moderate mitral regurgitation.
Moderate to severe aortic stenosis.
Estimated pulmonary artery pressure of 15-20 mmHg assuming a right atrial
pressure of 3 mmHg.
No prior study available for comparison.
Cytology from [facility]
Left pleural fluid (cytology, cellblock):
Negative for malignant cells.
Benign mesothelial cells and macrophages present in a background of occasional lymphocytes.
Discharge Plan
-
Patient Disposition: Long-Term/SNF
Discharge Diagnosis/Procedures: Acute hypoxic respiratory failure
Pleural effusion
Chronic Hfref
right hand fracture
Diet: As tolerated
Activity: As tolerated
Referrals:
Parth Martinez MD [Active] - in one to two weeks (right hand fracture, in splint)
Lloyd Osman MD [Active] - in two to three weeks (pleural effusion recurrent)
Sabino Hdez MD [Active] - in two to three weeks (chronic Hfref and pleural effusion)
Best Gillette MD [Family Provider] -
Prescriptions:
New
polyethylene glycol 3350 [HealthyLax] 17 gram Powder In Packet
17 g PO DAILY 30 Days Qty: 30 0RF
valsartan 80 mg Tablet
80 mg PO DAILY 30 Days Qty: 30 0RF
metoprolol succinate 25 mg Tablet Extended Release 24 Hr
25 mg PO DAILY 30 Days Qty: 30 0RF
Continued
fluticasone propion-salmeterol [Wixela Inhub] 250-50 mcg/dose Blister With Device
1 inh INHALATION BID
acetaminophen 325 mg Tablet
650 mg PO Q4H PRN (Reason: mild pain/fever)
donepezil 10 mg Tablet
10 mg PO HS
lovastatin 40 mg Tablet
40 mg PO QPM
sertraline 100 mg Tablet
100 mg PO DAILY
fexofenadine 180 mg Tablet
180 mg PO DAILY
aspirin 81 mg Tablet,Delayed Release (Dr/Ec)
81 mg PO DAILY
triamcinolone acetonide 0.1 % Cream
1 applic TOPICAL BID
Rx Instructions:
Apply to affect area until healed
omeprazole 20 mg Capsule,Delayed Release(Dr/Ec)
20 mg PO DAILY
simethicone 125 mg Tablet,Chewable
250 mg PO BID
montelukast 10 mg Tablet
10 mg PO DAILY
albuterol sulfate 90 mcg/actuation Hfa Aerosol Inhaler
2 puff INHALATION HS
memantine 10 mg Tablet
10 mg PO BID
mirtazapine 7.5 mg Tablet
7.5 mg PO HS
albuterol sulfate 90 mcg/actuation Hfa Aerosol Inhaler
2 puff INHALATION Q4HPRN PRN (Reason: cough/shortness of breath)
naproxen 500 mg Tablet
500 mg PO BID PRN (Reason: pain)
trazodone 50 mg Tablet
50 mg PO HS 30 Days Qty: 30 0RF
Discharge Orders:
Discharge Patient (As Directed); Ordered 04/04/24
Ordered By: Niko Ryan
Discharge Date and Time
Discharge Date/Time: 04/04/24 14:53
Print Language: KENYAN
== END 2024-04-04 14:53 | DRG 291 ==
LOC: 4 WEST ACU 00:15
PROVIDERS: Hospitalist; Physician Assistant; Physician Assistant Medical; Radiology Vascular & Interventional Radiology; ADMITTING PHYSICIAN Internal Medicine; ATTENDING PHYSICIAN Hospitalist; CONSULT PHYSICIAN Internal Medicine Cardiovascular Disease; CONSULT PHYSICIAN Internal Medicine Critical Care Medicine; EMERGENCY PHYSICIAN Student in an Organized Health Care Education/Training Program; FAMILY PHYSICIAN Family Medicine
PROC: 0W9B3ZX Drainage of Left Pleural Cavity, Percutaneous Approach, Diagnostic (ICD-10-PCS; 2024-03-26)
DX: I13.0 Hypertensive heart and chronic kidney disease with heart failure and stage 1 through stage 4 chronic kidney disease, or unspecified chronic kidney disease (principal); I50.23 Acute on chronic systolic (congestive) heart failure; J96.01 Acute respiratory failure with hypoxia; F03.93 Unspecified dementia, unspecified severity, with mood disturbance; J91.8 Pleural effusion in other conditions classified elsewhere; J98.11 Atelectasis; F03.94 Unspecified dementia, unspecified severity, with anxiety; J95.811 Postprocedural pneumothorax; D63.1 Anemia in chronic kidney disease; F32.A Depression, unspecified; N18.30 Chronic kidney disease, stage 3 unspecified; J45.909 Unspecified asthma, uncomplicated; I08.0 Rheumatic disorders of both mitral and aortic valves; E04.2 Nontoxic multinodular goiter; E78.00 Pure hypercholesterolemia, unspecified; I44.7 Left bundle-branch block, unspecified; D32.9 Benign neoplasm of meninges, unspecified; M18.11 Unilateral primary osteoarthritis of first carpometacarpal joint, right hand; M17.0 Bilateral primary osteoarthritis of knee; S62.320A Displaced fracture of shaft of second metacarpal bone, right hand, initial encounter for closed fracture; S00.83XA Contusion of other part of head, initial encounter; W19.XXXA Unspecified fall, initial encounter; R29.6 Repeated falls; Z91.81 History of falling; Z79.82 Long term (current) use of aspirin; Z79.899 Other long term (current) drug therapy
CPT/HCPCS: 88305; 29125; 32555; 70450; 70486; 71045; 71046; 71260; 73130; 73564; 80048; 80053; 80069; 81003; 81015; 82150; 82607; 82728; 82746; 82945; 83540; 83550; 83615; 83735; 83880; 83986; 84155; 84157; 84478; 85025; 85027; 87015; 87070; 87205; 88112; 89051; 93005; 93306; 94640; 97116; 97162; 97166; 97530; 99285; J2916; Q9950; Q9967

== ENCOUNTER → 2024-04-20 10:45 | Outpatient (REF) | payer MEDICARE, SELFPAY ==
[2024-04-20 12:21] LABS: ALT (SGPT) 13 U/L (0-35); AST (SGOT) 31 U/L (14-36); Albumin 3.2 g/dl (3.5-5.0); Alkaline Phosphatase 73 U/L (38-126); Blood Urea Nitrogen 28 mg/dl (7-17); Calcium 8.8 mg/dl (8.4-10.2); Carbon Dioxide 28 mmol/L (22-30); Chloride 106 mmol/L (98-107); Glucose 86 mg/dl (70-99); Potassium 4.4 mmol/L (3.5-5.1); Sodium 140 mmol/L (135-145); Total Bilirubin 0.3 mg/dl (0.2-1.3); Total Protein 6.2 g/dl (6.3-8.2)
[2024-04-20 12:26] LABS: Prealbumin (Transthyretin) 11.8 mg/dl (17.6-36.0)
[2024-04-20 12:29] LABS: NT-proBNP 20000 pg/ml
[2024-04-20 13:50] LABS: Band Neutrophils 3 % (0-3); Eosinophils 4 % (0-6); Lymphocytes 39 % (20-51); Monocytes 19 % (2-9); Segmented Neutrophils 35 % (42-75)
[2024-04-20 13:51] LABS: Anisocytosis 1+; Normal RBC Morphology No; Platelets Checked Yes
[2024-04-20 13:52] LABS: Absolute Neutrophils -Man Diff 0.6 10^3/uL (1.4-6.5); Total Cells Counted 100; White Blood Cell Count 1.8 10^3/uL (4.8-10.8)
[2024-04-20 13:54] LABS: Hemoglobin 10.6 g/dL (12.0-16.0); Mean Corp Hgb Conc. 31.2 g/dL (33.0-37.0); Mean Corpuscular Hgb 25.1 pg (27.0-31.0); Mean Corpuscular Volume 80.4 fL (81.0-99.0); Platelet Count 134 10^3/uL (130-400); Red Blood Cell Count 4.23 10^6/uL (4.20-5.40); Red Cell Dist. Width 18.4 % (11.5-14.5)
== END ==
LOC: OLABP 10:45
PROVIDERS: ATTENDING PHYSICIAN Family Medicine
DX: J90 Pleural effusion, not elsewhere classified (principal); I50.23 Acute on chronic systolic (congestive) heart failure; S62.91XD Unspecified fracture of right hand, subsequent encounter for fracture with routine healing; R29.6 Repeated falls; E78.5 Hyperlipidemia, unspecified; N18.30 Chronic kidney disease, stage 3 unspecified; F03.90 Unspecified dementia, unspecified severity, without behavioral disturbance, psychotic disturbance, mood disturbance, and anxiety; G47.33 Obstructive sleep apnea (adult) (pediatric)
CPT/HCPCS: 36415; 80053; 83880; 84134; 85025

== ENCOUNTER → 2024-04-21 10:40 | Outpatient (REF) | payer OTHER, MEDICARE, SELFPAY ==
[2024-04-21 12:14] LABS: Hematocrit 35.6 % (37.0-47.0); Hemoglobin 11.1 g/dL (12.0-16.0); Mean Corp Hgb Conc. 31.2 g/dL (33.0-37.0); Mean Corpuscular Hgb 25.1 pg (27.0-31.0); Mean Corpuscular Volume 80.4 fL (81.0-99.0); Red Blood Cell Count 4.43 10^6/uL (4.20-5.40); Red Cell Dist. Width 18.4 % (11.5-14.5)
[2024-04-21 12:35] LABS: Platelet Count 141 10^3/uL (130-400)
[2024-04-21 12:36] LABS: Band Neutrophils 2 % (0-3); Segmented Neutrophils 29 % (42-75)
[2024-04-21 12:37] LABS: Acanthocytes 1+; Anisocytosis 1+; Eosinophils 3 % (0-6); Hypochromasia 1+; Lymphocytes 46 % (20-51); Monocytes 20 % (2-9); Normal RBC Morphology No; Ovalocytes 1+; Platelets Checked Yes; Polychromasia 1+; Total Cells Counted 100
[2024-04-21 12:39] LABS: Absolute Neutrophils -Man Diff 0.6 10^3/uL (1.4-6.5)
== END ==
LOC: OLABP 10:40
PROVIDERS: ATTENDING PHYSICIAN Family Medicine
DX: J90 Pleural effusion, not elsewhere classified (principal); I50.23 Acute on chronic systolic (congestive) heart failure; S62.91XD Unspecified fracture of right hand, subsequent encounter for fracture with routine healing; R29.6 Repeated falls; R26.2 Difficulty in walking, not elsewhere classified; I13.0 Hypertensive heart and chronic kidney disease with heart failure and stage 1 through stage 4 chronic kidney disease, or unspecified chronic kidney disease; E78.5 Hyperlipidemia, unspecified; N18.30 Chronic kidney disease, stage 3 unspecified; F03.90 Unspecified dementia, unspecified severity, without behavioral disturbance, psychotic disturbance, mood disturbance, and anxiety; G47.33 Obstructive sleep apnea (adult) (pediatric)
CPT/HCPCS: 36415; 85025